=== PATIENT | female | born 1940 | race Caucasian/White ===

== ENCOUNTER 2019-12-02 17:47 | Inpatient (IN) ==
--- NOTE | 2019-12-02 23:52 | History & Physical Report ---
Date of Service December 02, 2019 Assessment & Plan (1) Facial swellinyo C female with HTN, HLP, Dementia presented initially to [facility] with complaint of left facial swelling. Imaging suggestive of extensive soft tissue edema, ?parotid involvement. Patient afebrile, HD stable, non-toxic in appearance. Labs from outside facility significant for leukocytosis and elevated lactate. CT read with no mention of abscess, drainable collection or involvement of deep spaces. -Admit to PCU -Load CT imaging from outside facility -Zosyn 3.375 gm IV q 8 -Follow cultures -Consider ENT consultation if needed Present on Admission?: Yes (2) Hypertension: Per review of records. BP is stable. Patient currently not on any medications. -Continue to monitor Present on Admission?: Yes (3) Hyperlipidemia: Chronic. -Patient had Crestor on medication list, does not appear to be taking it at the custodial -Confirm medications with sister in AM if able Present on Admission?: Yes (4) Dementia with behavioral disturbance: Chronic.. -Continue Seroquel -Holding Aricept for now as not on her medication list from her NH Present on Admission?: Yes (5) Thyroid mass of unclear etiology: Noted on imaging -Check TSH/T4 -US of thyroid prior to DC F/E/N - NSS, labs pending, regular diet as tolerated Ppx - low risk for DVT Code - Full per review of paperwork Dispo - Admit to PCU POC - Nu Zuniga . Left message Admission and Anticipated Discharge Date Admission Date: December 02, 2019 History of Present Illness Primary Care Provider: Austin Hay MD Patient unable to provide details of history or participate with physical exam due to underlying dementia. History obtained through chart review. Left message with patient's sister, Nu Zuniga [phone]. 79yo C female with history of dementia with behavioral disturbance, HTN, HLP. She presented to [facility] from her custodial today with complaint of left facial swelling. Workup at [facility] included a CT of the face which showede xtensive soft tissue swelling and subcutaneous stranding of left face and neck concerning for cellulitis and possibly inflammation of the left parotid and submandibular glands with no drainable collection or abscess. Also found to have bulky enlarged thyroid gland with heterogenous regions. Recommend followup with US. Additional studies at outside facility significant for Lactate=5.4, +UA, Cr=1.4, WBC=20.1 Patient with reported recent contact with a Covid-19 positive individual. Per report, Covid testing was sent at [facility], awaiting results. Allergies Allergy/AdvReac Type Severity Reaction Status Date / Time Unable to Assess Allergy Unverified 10/03/18 12:54 Home Medications Home Medications Medication Instructions Recorded Confirmed Type rosuvastatin 5 mg PO DAILY 05/31/18 05/31/18 History acetaminophen 325 mg tablet 650 mg PO Q4H PRN tab 10/03/18 10/03/18 History potassium chloride 20 mEq 20 meq PO DAILY PRN #30 tab 10/03/18 10/03/18 Rx tablet,extended release(part/cryst) quetiapine 25 mg tablet 25 mg PO BID #60 tab 11/02/18 Rx donepezil 10 mg tablet 10 mg PO DAILY #90 tab 12/14/18 Rx fentanyl 12/02/19 History ferrous sulfate 325 mg PO Q OTHER DAY 12/02/19 12/02/19 History magnesium hydroxide [Milk of 400 mg PO DAILY PRN 12/02/19 12/02/19 History Magnesia] polyethylene glycol 3350 [Miralax] 17 g PO DAILY PRN 12/02/19 12/02/19 History quetiapine [Seroquel] 50 mg PO DAILY 12/02/19 12/02/19 History quetiapine [Seroquel] 200 mg PO HS 12/02/19 12/02/19 History tramadol [Ultram] 50 mg PO Q8H PRN 12/02/19 12/02/19 History Past Med/Surg History Medical History (Updated 12/03/19 @ 00:30 by Daniela Priest DO) Colon wall thickening Dementia with behavioral disturbance Hyperlipidemia Hypertension Leg edema Low back pain 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) Sensorineural hearing loss (SNHL) of both ears Surgical History (Updated 10/03/18 @ 12:15 by Ginette Jay) History of eye surgery Family History (Updated 10/03/18 @ 12:17 by Ginette Jay) Unknown Alcohol abuse Anxiety Cancer Lung disease Cardiac disorder Breast cancer Ovarian cancer Myocardial infarction Other Family history non-contributory Social History Smoking Status: Unknown if ever smoked Communication Ability: Impaired Current Living Situation: Care Home Feels Safe at Home: Yes Review of Systems Review of Systems: Unobtainable due to cognitive status Physical Exam Physical Exam: General: patient frail, chronically ill in appearance, does not answer questions or follow commands Skin: warm, dry, intact HEENT: NC/AT, PERRL, EOMI, anicteric sclera, conjunctiva without injection, external ear normal to inspection and nontender, nares patent, dry mucus membranes, no oropharyngeal lesions, neck supple, trachea midline, no LAD, left face/parotid firm, tender, +anterior cervical LAD, +thyroid fullness, exam limited due to patient screaming Heart: +S1/S2, regular, no m/r/g Lungs: equal air entry bilaterally, no rales/rhonchi/wheezes Abd: +BS, soft, NT/ND, no masses/organomegaly/ascites Ext: warm, 2+ pulses in UE/LE bilaterally, no clubbing/cyanosis or edema Neuro: nonfocal, patient moving all extremities with equal strength, does not answer questions or follow commands Results & Data Results & Data ([facility]) Vital Signs (Past 12 Hours) Vital Signs Temp Pulse Resp BP Pulse Ox 12/02/19 23:33 36.9 C 70 16 129/74 97 Laboratory Results Pending Diagnostic Findings Pending ECG Additional Comments: Pending Code Status & VTE Plan Code Status Full PG Care Time/CCT Total # of Minutes Spent Total Time Spent with Patient: Total time spent is greater than 50% in coordination of care (as documented) at patient's floor/unit and/or counseling patient: Coding Level of Care Code 12252 Initial Inpt Care Lvl 3 Diagnoses Facial swelling R22.0 Hypertension I10 Hypertension type: essential hypertension Hyperlipidemia E78.5 Hyperlipidemia type: unspecified Dementia with behavioral disturbance F03.91 Dementia type: unspecified type Thyroid mass of unclear etiology E07.89 (1) Hypertension Hypertension type: essential hypertension Qualified Code(s): I10 - Essential (primary) hypertension (2) Hyperlipidemia Hyperlipidemia type: unspecified Qualified Code(s): E78.5 - Hyperlipidemia, unspecified (3) Dementia with behavioral disturbance Dementia type: unspecified type Qualified Code(s): F03.91 - Unspecified dementia with behavioral disturbance
[2019-12-02] MEDS ORDERED: ACETAMINOPHEN 325 MG TAB PO PRN (23:56)
[2019-12-02] MEDS ORDERED: ONDANSETRON INJ 2 MG/ML 2 ML VIAL IV PRN (23:56)
[2019-12-03] MEDS ORDERED: PIPERACILL/TAZOBAC CONSULT ACTIVE PRN (00:01)
[2019-12-03] MEDS ORDERED: traMADol HCL 50 MG TABLET PO PRN (00:02)
[2019-12-03] MEDS ORDERED: POLYETHYLENE (MIRALAX) 17 GM PACK PO PRN (00:02)
[2019-12-03] MEDS ORDERED: MAGNESIUM HYDROXIDE SUSP 30 ML UDC PO PRN (00:02)
[2019-12-03] MEDS ORDERED: SODIUM CHLORIDE 0.9% 1000ML 1,000 ML IV SCH (00:15)
[2019-12-03] MEDS ORDERED: PIPERACILLIN/TAZOBACTAM 3.375 GM in DEXTROSE 5% 100 ML IV ONE (00:30)
[2019-12-03 00:46] LABS: Basophils # (auto) 0.01 K/uL (0-0.2); Basophils % (auto) 0.1 %; Hematocrit (blood only) 32.8 % (37-47); Hemoglobin 10.5 g/dL (12.0-16.0); Immature Granulocytes # (auto) 0.06 K/uL (0.00-0.02); Immature Granulocytes % (auto) 0.3 %; Lymphocytes # (auto) 0.25 K/uL (1.2-3.4); Lymphocytes % (auto) 1.4 %; Mean Corpuscular Hemoglobin 27.3 pg (25-34); Mean Corpuscular Volume 85.2 fL (80-100); Monocytes # (auto) 0.24 K/uL (0.11-0.59); Monocytes % (auto) 1.3 %; Neutrophils # (auto) 17.52 K/uL (1.4-6.5); Neutrophils % (auto) 96.9 %; Platelet Count 189 K/uL (130-400); RDW Coefficient of Variation 14.7 % (11.5-14.5); RDW Standard Deviation 45.5 fL (36.4-46.3); Red Blood Count 3.85 M/uL (4.2-5.4); White Blood Count 18.08 K/uL (4.8-10.8)
[2019-12-03 01:03] LABS: Albumin Level 2.1 gm/dl (3.4-5.0); BUN Creatinine Ratio 25.5 (10-20); Bilirubin Direct 0.2 mg/dl (0-0.2); Calcium 7.9 mg/dl (8.5-10.1); Creatinine Clr Calc Pharmacy 38.5 ml/min; Est GFR (African American) 71.9; Est GFR (Non-African American) 62.1; Potassium 4.1 mmol/L (3.5-5.1)
[2019-12-03 01:14] LABS: Bilirubin,Total 0.4 mg/dl (0.2-1); Phosphorus 2.7 mg/dl (2.5-4.9); Thyroid Stimulating Hormone 0.179 uIu/ml (0.300-4.500)
[2019-12-03 01:27] LABS: T4 Free Thyroxine 1.16 ng/dl (0.8-1.6)
[2019-12-03 02:30] LABS: Appearance Urine Turbid (Clear); Bacteria Urine Automated 1+ (Negative); Bilirubin Urine Negative (Negative); Blood Urine 3+ (Negative); Color Urine Orange; Epithelial Cell Urine Auto 20-30 /lpf (0-5); Glucose Urine UA Negative (Negative); Ketones Urine Negative (Negative); Leukocyte Esterase Urine 2+ (Negative); Nitrite Urine Positive (Negative); Protein Urine 2+ (Negative); Specific Gravity Urine 1.026 (1.000-1.030); Urobilinogen Urine Negative (Negative); WBC Urine Automated >30 /hpf (0-5)
[2019-12-03 02:58] LABS: Cast Urine Automated 0 /lpf (0-5)
[2019-12-03] MEDS: PIPERACILLIN/TAZOBACTAM 3.375 GM in DEXTROSE 5% 100 ML IV SCH ×3 (06:30→21:20)
[2019-12-03] MEDS ORDERED: PNEUMOCOCCAL Polysaccharide Vaccine 25mcg/0.5mL vial/Syr IM ONE (08:00)
[2019-12-03] MEDS ORDERED: DONEPEZIL HCL 10 MG TAB PO SCH (09:00)
[2019-12-03] MEDS: QUEtiapine FUMARATE 25 MG TABLET PO SCH (09:45)
--- NOTE | 2019-12-03 15:01 | Hospitalist Progress Note ---
Date of Service December 03, 2019 Assessment & Plan (1) Facial swellinyo C female with HTN, HLP, Dementia presented initially to [place] [facility] with complaint of left facial swelling. Imaging suggestive of extensive soft tissue edema, ?parotid involvement. Patient afebrile, HD stable, non-toxic in appearance. Labs from outside facility significant for leukocytosis and elevated lactate. CT read with no mention of abscess, drainable collection or involvement of deep spaces. -Admit to PCU -Load CT imaging from outside facility -Zosyn 3.375 gm IV q 8 -Follow cultures -Consider ENT consultation if needed Improving based on prior notation Pt does not answer when asked if she feels better, but denies pain (2) Hypertension: Per review of records. BP is stable. Patient currently not on any medications. -Continue to monitor (3) Hyperlipidemia: Chronic. -Patient had Crestor on medication list, does not appear to be taking it at the long term -Confirm medications with sister in AM if able (4) Dementia with behavioral disturbance: Chronic.. -Continue Seroquel -Holding Aricept for now as not on her medication list from her NH Per nursing, facility informed nursing staff that pt uses ativan 0.5mg Q6hr PRN and tramadol HS PRN Fentanyl patch is long standing and for pain related to pelvic fx (5) Thyroid mass of unclear etiology: Noted on imaging -Check TSH/T4 -US of thyroid prior to DC Ppx - low risk for DVT Code - Full per review of paperwork Dispo - Admit to PCU POC - Nu Zuniga . Left message Per CM, pt will need PT/OT evals and insurance auth for d/c back to facility PT/OT not ordered yet as pt is unable to participate at present (6) UTI (urinary tract infection): UA noted Zosyn will cover Also with yeast in urine, will add fluconazole Urine cx pending Blood cx pending Admission and Anticipated Discharge Date Admission Date: December 02, 2019 Subjective Pt is mostly demented for nursing. They states she has tried to bite multiple people. She answers questions at times, other times not. No other concerns from nursing. Pt states "no" when asked if she has pain. Does not answer further questions. Review of Systems Review of Systems: Pertinent positives and negatives reviewed in HPI--all others negative Physical Exam Constitutional: WD/WN, vitals as above Eyes: normal visual trimble by confrontation and + anicteric sclerae Neck: normal visual inspection and trachea midline Respiratory: normal respiratory effort, lungs clear to auscultation Cardiovascular: Rate/Rhythm: regular rate and regular rhythm Gastrointestinal (Abdomen): Inspection/Auscultation: abdomen not distended Percussion/Palpation: abdomen soft; abdomen nontender Musculoskeletal: Head/Neck/Chest: normocephalic and head atraumatic negative for edema, peripheral pulses intact Skin: Pt with light pink discoloration on L, submandibular and moving into neck Neurologic: awake and + confused Psychiatric: Orientation: alert; + uncooperative Results & Data Results & Data ([facility]) Vital Signs (Past 12 Hours) Vital Signs Temp Pulse Resp BP Pulse Ox 12/03/19 07:34 36.4 C L 75 16 136/58 L 96 12/03/19 04:02 36.5 C 61 14 124/55 L 94 PG Care Time/CCT Total # of Minutes Spent Total Time Spent with Patient: Total time spent is greater than 50% in coordination of care (as documented) at patient's floor/unit and/or counseling patient: Coding Level of Care Code 69303 Subseq Hosp Care Lvl 3 Diagnoses Facial swelling R22.0 Hypertension I10 Hypertension type: essential hypertension Hyperlipidemia E78.5 Hyperlipidemia type: unspecified Dementia with behavioral disturbance F03.91 Dementia type: unspecified type Thyroid mass of unclear etiology E07.89 UTI (urinary tract infection) N39.0 (1) Hypertension Hypertension type: essential hypertension Qualified Code(s): I10 - Essential (primary) hypertension (2) Hyperlipidemia Hyperlipidemia type: unspecified Qualified Code(s): E78.5 - Hyperlipidemia, unspecified (3) Dementia with behavioral disturbance Dementia type: unspecified type Qualified Code(s): F03.91 - Unspecified dementia with behavioral disturbance
[2019-12-03] MEDS ORDERED: FLUCONAZOLE 200 MG/100 ML BAG IV ONE (15:15)
[2019-12-03] MEDS: CHECK fentaNYL PATCH PLACEMENT SCH ×2 (18:32→23:29)
[2019-12-03] MEDS: QUEtiapine FUMARATE 200 MG TAB PO SCH (21:22)
[2019-12-04] MEDS: LORazepam 0.5 MG TAB PO PRN ×2 (00:32→21:27)
[2019-12-04] MEDS: PIPERACILLIN/TAZOBACTAM 3.375 GM in DEXTROSE 5% 100 ML IV SCH ×3 (05:55→21:05)
[2019-12-04] MEDS: QUEtiapine FUMARATE 25 MG TABLET PO SCH (09:06)
[2019-12-04] MEDS: CHECK fentaNYL PATCH PLACEMENT SCH ×2 (09:59→15:51)
[2019-12-04] MEDS ORDERED: VANCOMYCIN CONSULT ACTIVE PRN (11:41)
--- NOTE | 2019-12-04 11:42 | Hospitalist Progress Note ---
Date of Service December 04, 2019 Assessment & Plan (1) Acute parotitis: CT face from [place] ER reviewed - no abscess seen; left parotid and left submandibular gland inflammation. ?cellulitis as well. On exam she appears to have left parotitis. Cont zosyn. add MRSA coverage with daptomycin. blood cultures from [place] are negative x 36 hours. 1/4 bottles from [facility] +for GPC clusters. I believe the 1 bottle at [facility] is likely contamination. (2) UTI (urinary tract infection): POA. urine cx from [place] + for gram negative taylor. will call tomorrow to get final report. cont zosyn for parotitis which will cover urine. no fungal growth on urine cx at [place] or [facility] - stop diflucan (3) Dementia with behavioral disturbance: uncertain baseline mental status. however, dementia likely advanced given the chronic seroquel usage. (4) Hyperlipidemia: hold statin while on daptomycin (5) Hypertension: controlled without meds (6) SDH (subdural hematoma): noted history of contributor to dementia? (7) Dehydration: start IV fluids repeat BMP in am (8) Underweight: BMI 17 per our records nearly 20kg of weight loss since 2019 likely due to advanced dementia cannot rule out other factors (9) Severe protein-calorie malnutrition: nearly 20 kg of weight loss in 1 year (10) Exposure to COVID-19 virus: while at [facility] patient shared a room with a patient that ultimately tested + for COVID-19 patient herself was tested at [facility] but it was several hours after the exposure without question her exposure would not lead to a positive test result that quickly thus, due to high risk of jean pierre the virus given advanced age, etc -- she is a PUI and remains in isolation watch for development of symptoms/signs of COVID-19 (11) Chronic kidney disease, stage 3a: baseline CrCl 30s/40s repeat BMP am (12) DVT prophylaxis: add heparin 5000 BID left message for Nu Welsh (sister) on voicemail tonight Admission and Anticipated Discharge Date Admission Date: December 02, 2019 Subjective tele stable overnight due to severe dementia no meaningful history or ROS could be obtained during the visit patient initially screaming upon my entrance to the room; did calm down during the exam, but then started screaming again I did not get a sense she was in any pain Review of Systems Review of Systems: Unobtainable due to cognitive status Physical Exam Constitutional: + thin, + altered mental status and + frail appearing; + not well developed, + not well nourished and no acute distress Eyes: no conjunctival abnormality and no scleral abnormality ENMT: Mouth: + dry oral mucous membranes left parotid gland enlarged, swollen, and mildly tender; no facial cellulitis on left Respiratory: normal respiratory effort, lungs clear to auscultation Auscultation: + diminished lung sounds (Bases) Cardiovascular: Rate/Rhythm: regular rate and regular rhythm Heart Sounds: normal S1 and normal S2 Vessels: posterior tibial pulses present and dorsalis pedis pulses present; no JVD Extremities: no edema Gastrointestinal (Abdomen): normal bowel sounds, soft, nontender, no hepatosplenomegaly Psychiatric: Orientation: + not alert and + not oriented x 3 Results & Data Results & Data ([facility]) Vital Signs (Past 12 Hours) Vital Signs Temp Pulse Pulse Pulse Resp BP Pulse Ox 12/04/19 08:40 36.7 C 64 17 131/73 100 12/04/19 03:56 36.2 C L 79 98/57 L 97 12/04/19 00:37 94 H 119/68 12/04/19 00:04 36.5 C 78 20 96/43 L 95 12/04/19 00:00 78 Laboratory Results Laboratory Results - last 24 hr 12/04/19 12:53 Creatinine 0.93 Est Cr Clr Drug Dosing 36.6 Est GFR ( Amer) 68.2 Est GFR (Non-Af Amer) 58.9 [facility] cultures -- blood cultures x 2 sets negative urine cx with GNR blood cultures [facility] -- 1 bottle out of 4 with GPC clusters PG Care Time/CCT Total # of Minutes Spent Total Time Spent with Patient: Total time spent is greater than 50% in coordination of care (as documented) at patient's floor/unit and/or counseling patient: Coding Level of Care Code 29093 Subseq Hosp Care Lvl 3 Diagnoses Acute parotitis K11.21 UTI (urinary tract infection) N39.0 Dementia with behavioral disturbance F03.91 Dementia type: unspecified type Hyperlipidemia E78.5 Hyperlipidemia type: unspecified Hypertension I10 Hypertension type: essential hypertension SDH (subdural hematoma) S06.5X9A Dehydration E86.0 Underweight R63.6 Severe protein-calorie malnutrition E43 Exposure to COVID-19 virus Z20.828 Chronic kidney disease, stage 3a N18.3 DVT prophylaxis Z29.9 (1) Dementia with behavioral disturbance Dementia type: unspecified type Qualified Code(s): F03.91 - Unspecified dementia with behavioral disturbance (2) Hyperlipidemia Hyperlipidemia type: unspecified Qualified Code(s): E78.5 - Hyperlipidemia, unspecified (3) Hypertension Hypertension type: essential hypertension Qualified Code(s): I10 - Essential (primary) hypertension
[2019-12-04] MEDS ORDERED: VANCOMYCIN HCL 1,000 MG in SODIUM CHLORIDE 0.9% 250 ML IV SCH (11:45)
[2019-12-04] MEDS ORDERED: VANCOMYCIN HCL 1,000 MG in SODIUM CHLORIDE 0.9% 250 ML IV STA (11:54)
--- NOTE | 2019-12-04 12:37 | XRay Report ---
XR chest 1V portable CLINICAL HISTORY: hypoxia COMPARISON STUDY: Chest radiograph May 31, 2018. FINDINGS: Moderate elevation of the left hemidiaphragm has increased since exam of May 31, 2018. No pneumothorax or pleural effusion is identified. No consolidation is noted. Mild left basilar opac ity favors atelectasis. There is no evidence for pulmonary edema. There is mild cardiomegaly. Degener ative changes of both shoulders, greater on the right, are incidentally noted. IMPRESSION: 1. Increase in moderate elevation of the left hemidiaphragm since chest radiograph January 28, 2019. 2. No acute cardiopulmonary findings identified. ACT 112: Negative or not required by law. Electronically signed by: Cecilio De Anda M.D. 12/04/2019 12:36 PM
[2019-12-04 13:34] LABS: Creatinine Clr Calc Pharmacy 36.6 ml/min; Est GFR (African American) 68.2; Est GFR (Non-African American) 58.9
[2019-12-04] MEDS: SODIUM CHLORIDE 0.9% 1000ML 1,000 ML IV SCH (14:45)
[2019-12-04] MEDS: DAPTOmycin 375 MG in SYRINGE 0 ML IV SCH (14:46)
[2019-12-04] MEDS ORDERED: FLUCONAZOLE 100 MG/50 ML BAG IV SCH (15:00)
[2019-12-04] MEDS ORDERED: DAPTOmycin 375 MG in SYRINGE 0 ML IV SCH (18:00)
[2019-12-04] MEDS: QUEtiapine FUMARATE 200 MG TAB PO SCH (21:27)
[2019-12-04] MEDS ORDERED: HALOPERIDOL LACTATE 5 MG/ML 1 ML VIAL IM STA (21:39)
[2019-12-04] MEDS ORDERED: HALOPERIDOL LACTATE 5 MG/ML 1 ML VIAL ONE (21:43)
[2019-12-04] MEDS ORDERED: MoRPHine SULFATE 2 MG/ML CARP IV STA (22:25)
[2019-12-05] MEDS: CHECK fentaNYL PATCH PLACEMENT SCH ×4 (00:41→23:16)
[2019-12-05] MEDS: SODIUM CHLORIDE 0.9% 1000ML 1,000 ML IV SCH (05:53)
[2019-12-05] MEDS: PIPERACILLIN/TAZOBACTAM 3.375 GM in DEXTROSE 5% 100 ML IV SCH ×3 (05:54→21:49)
[2019-12-05 08:44] LABS: Basophils # (auto) 0.01 K/uL (0-0.2); Basophils % (auto) 0.1 %; Eosinophils # (auto) 0.11 K/uL (0-0.5); Eosinophils % (auto) 1.2 %; Hematocrit (blood only) 26.8 % (37-47); Hemoglobin 8.5 g/dL (12.0-16.0); Immature Granulocytes # (auto) 0.02 K/uL (0.00-0.02); Immature Granulocytes % (auto) 0.2 %; Lymphocytes # (auto) 0.71 K/uL (1.2-3.4); Mean Corpuscular Hemoglobin 26.6 pg (25-34); Mean Corpuscular Hgb Conc 31.7 g/dL (32-36); Mean Corpuscular Volume 83.8 fL (80-100); Mean Platelet Volume 9.6 fL (7.4-10.4); Monocytes # (auto) 0.78 K/uL (0.11-0.59); Monocytes % (auto) 8.7 %; Neutrophils # (auto) 7.29 K/uL (1.4-6.5); Neutrophils % (auto) 81.8 %; Platelet Count 196 K/uL (130-400); RDW Coefficient of Variation 14.6 % (11.5-14.5); RDW Standard Deviation 45.6 fL (36.4-46.3); White Blood Count 8.92 K/uL (4.8-10.8)
[2019-12-05 09:02] LABS: BUN Creatinine Ratio 22.3 (10-20); Calcium 8.1 mg/dl (8.5-10.1); Creatinine Clr Calc Pharmacy 49.3 ml/min; Est GFR (African American) 96.6; Est GFR (Non-African American) 83.4; Potassium 3.7 mmol/L (3.5-5.1)
--- NOTE | 2019-12-05 09:05 | Communication Note ---
Date of Service: December 05, 2019 Blood cx's from [facility] NEGATIVE x 2 sets. Urine culture from 12/02/19 with: >100,000 CFU enterococcus faecalis -- pansensitive. >100,000 CFU pseudomonas aeruginosa -- sensitive to ceftaz, cefepime, gent, tobra, zosyn, meropenem; RESISTANT to quinolones. Artem Coronel MD
[2019-12-05] MEDS: HEPARIN SOD 5,000 UNIT/0.5 ML VIAL SQ SCH ×2 (10:06→21:49)
[2019-12-05] MEDS: QUEtiapine FUMARATE 25 MG TABLET PO SCH (10:07)
[2019-12-05] MEDS: fentaNYL 12 MCG/HR TDSY TD SCH (10:09)
[2019-12-05] MEDS: DAPTOmycin 375 MG in SYRINGE 0 ML IV SCH (14:10)
[2019-12-05] MEDS: LORazepam 0.5 MG TAB PO PRN (20:54)
--- NOTE | 2019-12-05 21:08 | Hospitalist Progress Note ---
Date of Service December 05, 2019 Assessment & Plan (1) Acute parotitis: CT face from [place] ER reviewed - no abscess seen; left parotid and left submandibular gland inflammation. ?cellulitis as well. left parotitis clinically on exam. IMPROVING - no fever, resolution of leukocytosis. Cont zosyn. Cont daptomycin. blood cultures from [place] are negative x 48 hours. 1/4 bottles from [facility] +for staph - likely contamination. (2) UTI (urinary tract infection): POA. 2nd to pseudomonas (resistant to quinolones) and enterococcus - sensitive to ampicillin. cont zosyn (will cover both pathogens). (3) Dementia with behavioral disturbance: uncertain baseline mental status. however, dementia likely advanced given the chronic seroquel usage, contractures on exam, primitive reflexes, etc (4) Hyperlipidemia: hold statin while on daptomycin (5) Hypertension: controlled without meds (6) SDH (subdural hematoma): noted history of contributor to dementia? (7) Dehydration: resolving s/p IV fluids BMP am (8) Underweight: BMI 17 per our records nearly 20kg of weight loss since 2019 likely due to advanced dementia cannot rule out other factors (9) Severe protein-calorie malnutrition: nearly 20 kg of weight loss in 1 year (10) Exposure to COVID-19 virus: while at [facility] patient shared a room with a patient that ultimately tested + for COVID-19 patient herself was tested at [facility] but it was several hours after the exposure without question her exposure would not lead to a positive test result that quickly thus, due to high risk of jean pierre the virus given advanced age, etc -- she is a PUI and remains in isolation watch for development of symptoms/signs of COVID-19 (11) Chronic kidney disease, stage 3a: baseline CrCl 30s/40s stable (12) DVT prophylaxis: heparin 5000 BID left message for Nu Welsh (sister) on voicemail 12/03 and 12/04 PT, OT Admission and Anticipated Discharge Date Admission Date: December 02, 2019 Subjective patient more comfortable today. not screaming like yesterday. unable to provide any meaningful history or ROS. staff report ongoing poor appetite. tele stable overnight. Review of Systems Review of Systems: Unobtainable due to cognitive status Physical Exam Constitutional: + thin, + altered mental status and + frail appearing; + not w ell developed, + not well nourished and no acute distress ENMT: Mouth: oral mucous membranes not dry left face - left parotid gland swelling; about 2.5cm in vertical height, and about 2cm in width; mildly tender to palpation; minimal/scant overlying erythema. shotty lymphadenopathy left cervical region. Respiratory: normal respiratory effort, lungs clear to auscultation Auscultation: + diminished lung sounds (Bases) Cardiovascular: Rate/Rhythm: regular rate and regular rhythm Heart Sounds: normal S1 and normal S2 Vessels: posterior tibial pulses present and dorsalis pedis pulses present; no JVD Extremities: no edema Gastrointestinal (Abdomen): normal bowel sounds, soft, nontender, no hepatosplenomegaly Psychiatric: Orientation: + not alert and + not oriented x 3 Results & Data Results & Data ([facility]) Vital Signs (Past 12 Hours) Vital Signs Temp Pulse Pulse Resp BP BP Pulse Ox 12/05/19 19:37 36.5 C 85 17 142/81 H 100 12/05/19 16:48 36.7 C 88 17 149/97 H 95 12/05/19 11:12 36.9 C 86 22 115/87 98 Laboratory Results Laboratory Results - last 24 hr 12/05/19 12/05/19 08:08 08:08 WBC 8.92 RBC 3.20 L Hgb 8.5 L Hct 26.8 L MCV 83.8 MCH 26.6 MCHC 31.7 L RDW Std Deviation 45.6 RDW Coeff of Wilmer 14.6 H Plt Count 196 MPV 9.6 Immature Gran % (Auto) 0.2 Neut % (Auto) 81.8 Lymph % (Auto) 8.0 [place]orne % (Auto) 8.7 Eos % (Auto) 1.2 Baso % (Auto) 0.1 Neut # (Auto) 7.29 H Lymph # (Auto) 0.71 L [place] # (Auto) 0.78 H Eos # (Auto) 0.11 Baso # (Auto) 0.01 Immature Gran # (Auto) 0.02 Sodium 142 Potassium 3.7 Chloride 112 H Carbon Dioxide 24 Anion Gap 6.0 BUN 15 Creatinine 0.69 Est Cr Clr Drug Dosing 49.3 Est GFR ( Amer) 96.6 Est GFR (Non-Af Amer) 83.4 BUN/Creatinine Ratio 22.3 H Glucose 81 Calcium 8.1 L blood cx's x 2 sets -- [facility] (12/02) -- negative. urine cx -- 12/02 - pseudomonas, enterococcus (see communication note). PG Care Time/CCT Total # of Minutes Spent Total Time Spent with Patient: Total time spent is greater than 50% in coordination of care (as documented) at patient's floor/unit and/or counseling patient: Coding Level of Care Code 58196 Subseq Hosp Care Lvl 2 Diagnoses Acute parotitis K11.21 UTI (urinary tract infection) N39.0 Dementia with behavioral disturbance F03.91 Dementia type: unspecified type Hyperlipidemia E78.5 Hyperlipidemia type: unspecified Hypertension I10 Hypertension type: essential hypertension SDH (subdural hematoma) S06.5X9A Dehydration E86.0 Underweight R63.6 Severe protein-calorie malnutrition E43 Exposure to COVID-19 virus Z20.828 Chronic kidney disease, stage 3a N18.3 DVT prophylaxis Z29.9 (1) Dementia with behavioral disturbance Dementia type: unspecified type Qualified Code(s): F03.91 - Unspecified dementia with behavioral disturbance (2) Hyperlipidemia Hyperlipidemia type: unspecified Qualified Code(s): E78.5 - Hyperlipidemia, unspecified (3) Hypertension Hypertension type: essential hypertension Qualified Code(s): I10 - Essential (primary) hypertension
[2019-12-05] MEDS: QUEtiapine FUMARATE 200 MG TAB PO SCH (21:49)
[2019-12-06] MEDS: PIPERACILLIN/TAZOBACTAM 3.375 GM in DEXTROSE 5% 100 ML IV SCH ×3 (06:42→22:11)
[2019-12-06 07:47] LABS: Hematocrit (blood only) 28.4 % (37-47); Mean Corpuscular Hemoglobin 26.8 pg (25-34); Mean Corpuscular Hgb Conc 31.7 g/dL (32-36); Mean Corpuscular Volume 84.5 fL (80-100); Mean Platelet Volume 9.1 fL (7.4-10.4); Platelet Count 224 K/uL (130-400); RDW Coefficient of Variation 14.8 % (11.5-14.5); RDW Standard Deviation 45.9 fL (36.4-46.3); Red Blood Count 3.36 M/uL (4.2-5.4); White Blood Count 6.56 K/uL (4.8-10.8)
[2019-12-06 09:04] LABS: Calcium 8.1 mg/dl (8.5-10.1); Creatinine Clr Calc Pharmacy 52.9 ml/min; Est GFR (African American) 97.6; Est GFR (Non-African American) 84.2; Potassium 3.5 mmol/L (3.5-5.1)
[2019-12-06] MEDS: CHECK fentaNYL PATCH PLACEMENT SCH ×3 (09:18→23:45)
[2019-12-06] MEDS: QUEtiapine FUMARATE 25 MG TABLET PO SCH (09:19)
[2019-12-06] MEDS: HEPARIN SOD 5,000 UNIT/0.5 ML VIAL SQ SCH ×2 (09:20→21:06)
[2019-12-06] MEDS ORDERED: bisacodyL 10 MG SUPP PR STA (10:21)
[2019-12-06] MEDS ORDERED: SOD PHOSPHATE/SOD BIPHOSPHATE ENEMA 132 ML BTL PR PRN (10:21)
--- NOTE | 2019-12-06 10:21 | Hospitalist Progress Note ---
Date of Service December 06, 2019 Assessment & Plan (1) Positive blood culture: 1/8 bottles + for MRSA. 4 of the bottles were drawn at [facility] ER and are fully negative. Typically 1 bottle out of 8 would be considered contamination. However, the pathogen is MRSA. I would be hard pressed to ignore MRSA in the blood. Thus, will plan on 14-day course of daptomycin (or vanco) for such. Check echo to ensure clean valves/no SBE. (2) Acute parotitis: CT face from [place] ER reviewed - no abscess seen; left parotid and left submandibular gland inflammation. ?cellulitis as well. left parotitis clinically on exam. Continues to improve. Cont zosyn. Cont daptomycin. (3) UTI (urinary tract infection): POA. 2nd to pseudomonas (resistant to quinolones) and enterococcus - sensitive to ampicillin. cont zosyn (will cover both pathogens). daptomycin is to cover left parotid gland and the MRSA in blood. (4) Dementia with behavioral disturbance: uncertain baseline mental status. however, dementia likely advanced given the chronic seroquel usage, contractures on exam, primitive reflexes, etc (5) Hyperlipidemia: hold statin while on daptomycin (6) Hypertension: controlled without meds (7) SDH (subdural hematoma): noted history of (8) Dehydration: resolved however, I am concerned her nutrition and oral intake continue to be poor will need to watch for need for ongoing IV fluids (9) Underweight: BMI 17 per our records nearly 20kg of weight loss since 2019 likely due to advanced dementia cannot rule out other factors (10) Severe protein-calorie malnutrition: nearly 20 kg of weight loss in 1 year (11) Exposure to COVID-19 virus: while at [facility] patient shared a room with a patient that ultimately tested + for COVID-19 patient herself was tested at [facility] but it was several hours after the exposure without question her exposure would not lead to a positive test result that quickly the test at [facility] was negative thus, due to high risk of jean pierre the virus given advanced age, etc -- she is a PUI and remains in isolation watch for development of symptoms/signs of COVID-19 will retest her today (12) Chronic kidney disease, stage 3a: baseline CrCl 30s/40s stable BMP am (13) Abnormal leg finding: LLE is much larger than RLE. Check doppler of LLE, r/o DVT. She is on heparin SC for DVT proph at present. (14) DVT prophylaxis: heparin 5000 BID left message for Nu Welsh (sister) on voicemail 12/03 and 12/04 PT, OT Admission and Anticipated Discharge Date Admission Date: December 02, 2019 Subjective patient very calm during visit today. no screaming to suggest discomfort or pain. looks at me but doesn't verbalize / speak. unable to elicit any history/ROS due to advanced dementia. Review of Systems Review of Systems: Unobtainable due to mental health condition and Unobtainable due to cognitive status Physical Exam Constitutional: + thin, + altered mental status and + frail appearing; + not well developed, + not well nourished and no acute distress Eyes: no conjunctival abnormality and no scleral abnormality ENMT: Mouth: + dry oral mucous membranes left parotid gland -- less swelling, size has decreased, nontender to palpation; overlying erythema resolved; shotty lymphadenopathy left neck Respiratory: normal respiratory effort, lungs clear to auscultation Auscultation: + diminished lung sounds (Bases) Cardiovascular: Rate/Rhythm: regular rate and regular rhythm Heart Sounds: normal S1 and normal S2 Vessels: posterior tibial pulses present and dorsalis pedis pulses present; no JVD Extremities: no edema Gastrointestinal (Abdomen): normal bowel sounds, soft, nontender, no hepatosplenomegaly Musculoskeletal: left leg is much larger than right leg - new Neurologic: contractures of arms Psychiatric: Orientation: + not alert and + not oriented x 3 Results & Data Results & Data ([facility]) Vital Signs (Past 12 Hours) Vital Signs Temp Pulse Resp BP BP Pulse Ox 12/06/19 07:58 36.8 C 82 18 151/67 H 96 12/06/19 02:55 36.6 C 95 H 20 133/85 91 12/05/19 23:07 36.8 C 121 H 20 155/65 H 93 Laboratory Results Laboratory Results - last 24 hr 12/06/19 12/06/19 12/06/19 07:21 07:21 07:22 WBC 6.56 RBC 3.36 L Hgb 9.0 L Hct 28.4 L MCV 84.5 MCH 26.8 MCHC 31.7 L RDW Std Deviation 45.9 RDW Coeff of Wilmer 14.8 H Plt Count 224 MPV 9.1 Sodium 141 Potassium 3.5 Chloride 110 H Carbon Dioxide 24 Anion Gap 7.0 BUN 10 D Creatinine 0.67 Est Cr Clr Drug Dosing 52.9 Est GFR ( Amer) 97.6 Est GFR (Non-Af Amer) 84.2 BUN/Creatinine Ratio 15.0 Glucose 75 Calcium 8.1 L Vitamin B12 Pending Folate Pending PG Care Time/CCT Total # of Minutes Spent Total Time Spent with Patient: Total time spent is greater than 50% in coordination of care (as documented) at patient's floor/unit and/or counseling patient: Coding Level of Care Code 39164 Subseq Hosp Care Lvl 3 Diagnoses Positive blood culture R78.81 Acute parotitis K11.21 UTI (urinary tract infection) N39.0 Dementia with behavioral disturbance F03.91 Dementia type: unspecified type Hyperlipidemia E78.5 Hyperlipidemia type: unspecified Hypertension I10 Hypertension type: essential hypertension SDH (subdural hematoma) S06.5X9A Dehydration E86.0 Underweight R63.6 Severe protein-calorie malnutrition E43 Exposure to COVID-19 virus Z20.828 Chronic kidney disease, stage 3a N18.3 Abnormal leg finding R29.91 DVT prophylaxis Z29.9 (1) Dementia with behavioral disturbance Dementia type: unspecified type Qualified Code(s): F03.91 - Unspecified dementia with behavioral disturbance (2) Hyperlipidemia Hyperlipidemia type: unspecified Qualified Code(s): E78.5 - Hyperlipidemia, unspecified (3) Hypertension Hypertension type: essential hypertension Qualified Code(s): I10 - Essential (primary) hypertension
[2019-12-06 11:51] LABS: Folate (Folic Acid) 10.42 ng/ml (>5.38)
--- NOTE | 2019-12-06 12:29 | XCELERA ---
[id number]
[2019-12-06] MEDS: DAPTOmycin 375 MG in SYRINGE 0 ML IV SCH (14:30)
[2019-12-06] MEDS: QUEtiapine FUMARATE 200 MG TAB PO SCH (20:01)
[2019-12-07] MEDS ORDERED: Heparin IV Standard *NO* Bolus IV ONE (00:03)
[2019-12-07 01:26] LABS: Partial Thromboplastin Ratio 1.1; Partial Thromboplastin Time 29.6 Seconds (21.0-31.0)
[2019-12-07] MEDS: HEPARIN SODIUM/DEXTROSE 25,000 UNITS/500 ML BAG IV SCH ×2 (02:31→23:42)
[2019-12-07] MEDS: PIPERACILLIN/TAZOBACTAM 3.375 GM in DEXTROSE 5% 100 ML IV SCH ×3 (05:37→22:10)
--- NOTE | 2019-12-07 06:57 | Ultrasound Report ---
ULTRASOUND LEFT LOWER EXTREMITY VENOUS CLINICAL HISTORY: Left lower extremity edema. COMPARISON STUDY: Left lower extremity venous ultrasound dated 09/19/2018. TECHNIQUE: Real-time, grayscale, and color Doppler sonography of the deep veins of the left lower ext remity was performed from the inguinal crease to the calf. Compression and augmentation were utilized . Examination is degraded by lack of patient cooperation. FINDINGS: There is nearly occlusive and acute appearing deep venous thrombosis identified in the left common femoral vein. The left superficial femoral vein is patent and normally compressible. The popl iteal vein and calf vessels were not visualized. The greater saphenous vein and the profunda femoris vein at the junction with the common femoral vein are clear. IMPRESSION: There is acute appearing and nearly occlusive deep venous thrombosis identified in the le ft common femoral vein. ACT 112: Negative or not required by law. Electronically signed by: Sigifredo Stewart M.D. 12/07/2019 6:56 AM
[2019-12-07 08:28] LABS: Partial Thromboplastin Ratio 1.3; Partial Thromboplastin Time 35.8 Seconds (21.0-31.0)
[2019-12-07 08:41] LABS: BUN Creatinine Ratio 12.9 (10-20); Calcium 8.3 mg/dl (8.5-10.1); Creatinine Clr Calc Pharmacy 55.6 ml/min; Est GFR (African American) 99.1; Est GFR (Non-African American) 85.5; Potassium 3.3 mmol/L (3.5-5.1)
[2019-12-07] MEDS: CHECK fentaNYL PATCH PLACEMENT SCH ×3 (08:43→23:41)
[2019-12-07] MEDS: QUEtiapine FUMARATE 25 MG TABLET PO SCH (08:43)
[2019-12-07] MEDS ORDERED: HEPARIN IV BOLUS 4,000 UNITS in SYRINGE 0 ML IV ONE (09:00)
[2019-12-07] MEDS ORDERED: POTASSIUM CHLORIDE / WTR 10 MEQ/100 ML PLCT IV STA (10:41)
--- NOTE | 2019-12-07 11:47 | Hospitalist Progress Note ---
Date of Service December 07, 2019 Assessment & Plan (1) DVT (deep venous thrombosis): heparin infusion instituted. she developed the DVT despite appropriate DVT proph with heparin SC. will d/w pharmacy which oral agent to use at discharge. (2) Positive blood culture: 1/8 bottles + for MRSA. 4 of the bottles were drawn at [facility] ER and are fully negative. Typically 1 bottle out of 8 would be considered contamination. However, the pathogen is MRSA. I would be hard pressed to ignore MRSA in the blood. Thus, will plan on 14-day course of daptomycin (or vanco) for such. Today is day #4 of daptomycin. When she returns to SNF will need to use vanco IV. Echo w/o endocarditis. (3) Acute parotitis: LEFT. Continues to improve. Cont zosyn. Cont daptomycin. (4) UTI (urinary tract infection): POA. 2nd to pseudomonas (resistant to quinolones) and enterococcus - sensitive to ampicillin. cont zosyn (will cover both pathogens). daptomycin is to cover left parotid gland and the MRSA in blood. today is day #5 of 7 of Rx for both pathogens d/c [facility] soon (5) Dementia with behavioral disturbance: uncertain baseline mental status. however, dementia likely advanced given the chronic seroquel usage, contractures on exam, primitive reflexes, etc (6) Hyperlipidemia: hold statin while on daptomycin (7) Hypertension: controlled without meds (8) SDH (subdural hematoma): noted history of (9) Dehydration: resolved however, nutrition continues to be poor suspect this is chronic issue due to advanced dementia consider appetite stimulant (10) Underweight: BMI 17 per our records nearly 20kg of weight loss since 2019 likely due to advanced dementia cannot rule out other factors (11) Severe protein-calorie malnutrition: nearly 20 kg of weight loss in 1 year (12) Exposure to COVID-19 virus: while at [facility] patient shared a room with a patient that ultimately tested + for COVID-19 patient herself was tested at [facility] but it was several hours after the exposure without question her exposure would not lead to a positive test result that quickly the test at [place] was negative the exposure occurred 12/02/2019 thus, due to high risk of jean pierre the virus given advanced age, etc -- she is a PUI and remains in isolation watch for development of symptoms/signs of COVID-19 she needs 14 days of quarantine (even despite neg COVID test yesterday -- she could develop symptoms anytime in the next 9 days) (13) Chronic kidney disease, stage 3a: baseline CrCl 30s/40s stable BMP am (14) DVT prophylaxis: heparin 5000 BID left message for Nu Welsh (sister) on voicemail 12/03 and 12/04 and 12/06 PT, OT can d/c tele; move to med/surg Admission and Anticipated Discharge Date Admission Date: December 02, 2019 Subjective patient lying comfortably in bed during my visit no screaming/yelling or signs of pain/discomfort during the visit tele stable overnight staff report "large" bowel movement last night poor appetite unable to provide any meaningful history or ROS Review of Systems Review of Systems: Unobtainable due to mental health condition and Unobtainable due to cognitive status Physical Exam Constitutional: + thin, + altered mental status and + frail appearing; + not well developed, + not well nourished and no acute distress ENMT: Mouth: + dry oral mucous membranes left parotid gland continues to improve; nontender; no erythema, warmth, or tenderness. size is <2cm x 1cm Respiratory: normal respiratory effort, lungs clear to auscultation Auscultation: + diminished lung sounds (Bases) Cardiovascular: Rate/Rhythm: regular rate and regular rhythm Heart Sounds: normal S1 and normal S2 Vessels: posterior tibial pulses present and dorsalis pedis pulses present; no JVD Extremities: no edema Gastrointestinal (Abdomen): normal bowel sounds, soft, nontender, no hepatosplenomegaly Musculoskeletal: left leg is larger than right leg Neurologic: contractures of arms Psychiatric: Orientation: + not alert and + not oriented x 3 Results & Data Results & Data ([facility]) Vital Signs (Past 12 Hours) Vital Signs Temp Pulse Pulse Resp BP BP Pulse Ox 12/07/19 09:14 36.7 C 96 H 17 120/63 93 12/07/19 00:18 37.0 C 103 H 22 170/72 H 97 Laboratory Results Laboratory Results - last 24 hr 12/06/19 12/06/19 12/06/19 07:22 17:05 17:05 APTT PTT Ratio Sodium Potassium Chloride Carbon Dioxide Anion Gap BUN Creatinine Est Cr Clr Drug Dosing Est GFR ( Amer) Est GFR (Non-Af Amer) BUN/Creatinine Ratio Glucose Calcium Vitamin B12 423 Folate 10.42 COVID-19 Eval Order Covid19 [facility] SARS-CoV-2, RNA, NAAT NEGATIVE 12/07/19 12/07/19 12/07/19 00:51 07:39 07:39 APTT 29.6 35.8 H PTT Ratio 1.1 1.3 Sodium 140 Potassium 3.3 L Chloride 106 Carbon Dioxide 24 Anion Gap 9.0 BUN 8 Creatinine 0.64 Est Cr Clr Drug Dosing 55.6 Est GFR ( Amer) 99.1 Est GFR (Non-Af Amer) 85.5 BUN/Creatinine Ratio 12.9 Glucose 88 Calcium 8.3 L Vitamin B12 Folate COVID-19 Eval Order SARS-CoV-2, RNA, NAAT PG Care Time/CCT Total # of Minutes Spent Total Time Spent with Patient: Total time spent is greater than 50% in coordination of care (as documented) at patient's floor/unit and/or counseling patient: Coding Level of Care Code 92813 Subseq Hosp Care Lvl 2 Diagnoses DVT (deep venous thrombosis) I82.412 DVT location: lower extremity Affected thrombotic vein of extremity: femoral Chronicity: acute Laterality: left Positive blood culture R78.81 Acute parotitis K11.21 UTI (urinary tract infection) N39.0 Dementia with behavioral disturbance F03.91 Dementia type: unspecified type Hyperlipidemia E78.5 Hyperlipidemia type: unspecified Hypertension I10 Hypertension type: essential hypertension SDH (subdural hematoma) S06.5X9A Dehydration E86.0 Underweight R63.6 Severe protein-calorie malnutrition E43 Exposure to COVID-19 virus Z20.828 Chronic kidney disease, stage 3a N18.3 DVT prophylaxis Z29.9 (1) Dementia with behavioral disturbance Dementia type: unspecified type Qualified Code(s): F03.91 - Unspecified dementia with behavioral disturbance (2) Hyperlipidemia Hyperlipidemia type: unspecified Qualified Code(s): E78.5 - Hyperlipidemia, unspecified (3) Hypertension Hypertension type: essential hypertension Qualified Code(s): I10 - Essential (primary) hypertension (4) DVT (deep venous thrombosis) DVT location: lower extremity Affected thrombotic vein of extremity: femoral Chronicity: acute Laterality: left Qualified Code(s): I82.412 - Acute embolism and thrombosis of left femoral vein
[2019-12-07] MEDS: POTASSIUM CHLORIDE / WTR 10 MEQ/100 ML PLCT IV SCH ×2 (11:49→13:57)
[2019-12-07] MEDS: DAPTOmycin 375 MG in SYRINGE 0 ML IV SCH (13:57)
[2019-12-07 16:06] LABS: Partial Thromboplastin Ratio > 5.0
[2019-12-07 16:21] LABS: Partial Thromboplastin Time > 139.0 Seconds (21.0-31.0)
[2019-12-07] MEDS: CEROVITE ADV FORMULA TAB PO SCH (17:27)
[2019-12-07] MEDS: THIAMINE HCL 100 MG TAB PO SCH ×2 (17:27→22:11)
[2019-12-07] MEDS: SENNA 8.6 MG TAB PO SCH (17:28)
[2019-12-07 19:44] LABS: Partial Thromboplastin Ratio 1.7
[2019-12-07 19:55] LABS: Partial Thromboplastin Time 48.1 Seconds (21.0-31.0)
[2019-12-07] MEDS: QUEtiapine FUMARATE 200 MG TAB PO SCH (22:11)
[2019-12-08 03:27] LABS: Partial Thromboplastin Ratio > 5.0
[2019-12-08 03:38] LABS: Partial Thromboplastin Time > 139.0 Seconds (21.0-31.0)
[2019-12-08 04:59] LABS: Hematocrit (blood only) 24.7 % (37-47); Mean Corpuscular Hemoglobin 27.1 pg (25-34); Mean Corpuscular Hgb Conc 32.4 g/dL (32-36); Mean Corpuscular Volume 83.7 fL (80-100); Platelet Count 244 K/uL (130-400); RDW Coefficient of Variation 14.8 % (11.5-14.5); RDW Standard Deviation 45.2 fL (36.4-46.3); Red Blood Count 2.95 M/uL (4.2-5.4); White Blood Count 5.28 K/uL (4.8-10.8)
[2019-12-08 05:35] LABS: BUN Creatinine Ratio 10.9 (10-20); Calcium 8.2 mg/dl (8.5-10.1); Creatinine Clr Calc Pharmacy 55.6 ml/min; Est GFR (African American) 99.1; Est GFR (Non-African American) 85.5; Potassium 2.7 mmol/L (3.5-5.1)
[2019-12-08] MEDS: PIPERACILLIN/TAZOBACTAM 3.375 GM in DEXTROSE 5% 100 ML IV SCH ×2 (05:46→13:56)
[2019-12-08 07:20] LABS: Partial Thromboplastin Ratio 1.1; Partial Thromboplastin Time 30.6 Seconds (21.0-31.0)
[2019-12-08] MEDS: POTASSIUM CHLORIDE / WTR 10 MEQ/100 ML PLCT IV SCH ×3 (08:42→10:53)
[2019-12-08] MEDS: CHECK fentaNYL PATCH PLACEMENT SCH ×3 (09:36→23:32)
[2019-12-08] MEDS: fentaNYL 12 MCG/HR TDSY TD SCH (09:36)
[2019-12-08] MEDS: SENNA 8.6 MG TAB PO SCH (09:36)
[2019-12-08] MEDS: POTASSIUM CHLORIDE 10 MEQ TABCR PO SCH ×2 (09:40→22:02)
[2019-12-08] MEDS: QUEtiapine FUMARATE 25 MG TABLET PO SCH (09:41)
[2019-12-08] MEDS: THIAMINE HCL 100 MG TAB PO SCH ×3 (09:43→22:02)
[2019-12-08] MEDS: CEROVITE ADV FORMULA TAB PO SCH ×2 (09:44→09:56)
[2019-12-08] MEDS: DAPTOmycin 375 MG in SYRINGE 0 ML IV SCH (13:56)
[2019-12-08] MEDS: ENOXAPARIN 80 MG/0.8 ML SYR SQ SCH (16:31)
--- NOTE | 2019-12-08 17:43 | Hospitalist Progress Note ---
Date of Service December 08, 2019 Assessment & Plan (1) DVT (deep venous thrombosis): LLE she developed the DVT despite appropriate DVT proph with heparin SC. will stop heparin drip today transition to lovenox 1.5mg/kg/day (70mg) daily and treat for 6 months poor candidate for coumadin due to inconsistent eating and low body weight poor candidate for novel agent as well lovenox will provide most consistent anticoagulation (2) Positive blood culture: 1/8 bottles + for MRSA. 4 of the bottles were drawn at [facility] ER and are fully negative. Typically 1 bottle out of 8 would be considered contamination. However, the pathogen is MRSA. I would be hard pressed to ignore MRSA in the blood. Thus, will plan on 14-day course of daptomycin (or vanco) for such. Today is day #5 of daptomycin. When she returns to SNF will need to use vanco IV in franc[place] of dapto. Echo w/o endocarditis. (3) Acute parotitis: LEFT. Continues to improve. today is day 7 of zosyn; stop such, transition to oral augmentin x 3 more days. cont daptomycin which will provide MRSA coverage. (4) UTI (urinary tract infection): POA. 2nd to pseudomonas (resistant to quinolones) and enterococcus - sensitive to ampicillin. cont zosyn (will cover both pathogens). daptomycin is to cover left parotid gland and the MRSA in blood. today is day #6-7 of 7 of Rx for both pathogens stop zosyn today. (5) Dementia with behavioral disturbance: dementia advanced given the chronic seroquel usage, contractures on exam, primitive reflexes, etc (6) Hyperlipidemia: hold statin while on daptomycin (7) Hypertension: controlled without meds (8) SDH (subdural hematoma): noted history of (9) Dehydration: resolved however, nutrition continues to be poor suspect this is chronic issue due to advanced dementia (10) Underweight: BMI 17 per our records nearly 20kg of weight loss since 2019 likely due to advanced dementia cannot rule out other factors (11) Severe protein-calorie malnutrition: nearly 20 kg of weight loss in 1 year (12) Exposure to COVID-19 virus: while at [facility] patient shared a room with a patient that ultimately tested + for COVID-19 patient herself was tested at [facility] but it was several hours after the exposure without question her exposure would not lead to a positive test result that quickly the test at [place] was negative the exposure occurred 12/02/2019 thus, due to high risk of jean pierre the virus given advanced age, etc -- she is a PUI and remains in isolation watch for development of symptoms/signs of COVID she needs 14 days of quarantine (even despite neg COVID test 2 days ago- she could develop symptoms anytime in the next 8 days) (13) Chronic kidney disease, stage 3a: baseline CrCl 30s/40s stable BMP am (14) DVT prophylaxis: lovenox as above left message for Nu Welsh (sister) on voicemail 12/03 and 12/04 and 12/06 finally spoke with Nu today along with her questions answered Nu's , Harjinder, holds healthcare POA they told me they didn't have the power to change her code status I explained to them they were mistaken Harjinder read me the document he has which authorizes him to make medical decisions on her behalf I asked them to discuss her code status together and let me know what they want to do phone call was 20+ minutes in duration cont PT, OT d/c to SNF next 1-2 days Admission and Anticipated Discharge Date Admission Date: December 02, 2019 Subjective per staff pt continues to have very poor oral intake I spoke with Nu Johnman, pt's twin sister, and she confirmed that her sister has lost copious weight in the last year at the SNF and has been eating poorly for some time staff report no acute issues Review of Systems Review of Systems: Unobtainable due to cognitive status Physical Exam Constitutional: + thin, + altered mental status and + frail appearing; + not well developed, + not well nourished and no acute distress Eyes: no conjunctival abnormality and no scleral abnormality ENMT: Mouth: + dry oral mucous membranes left parotid gland continues to decrease in size no tenderness no erythema minimal swelling today Respiratory: normal respiratory effort, lungs clear to auscultation Auscultation: + diminished lung sounds (Bases) Cardiovascular: Rate/Rhythm: regular rate and regular rhythm Heart Sounds: normal S1 and normal S2 Vessels: posterior tibial pulses present and dorsalis pedis pulses present; no JVD Extremities: no edema Gastrointestinal (Abdomen): normal bowel sounds, soft, nontender, no hepatosplenomegaly Psychiatric: Orientation: + not alert and + not oriented x 3 Results & Data Results & Data ([facility]) Vital Signs (Past 12 Hours) Vital Signs Temp Pulse Resp BP Pulse Ox 12/08/19 07:39 36.6 C 93 H 20 121/63 99 Laboratory Results Laboratory Results - last 24 hr 12/07/19 12/08/19 12/08/19 19:17 02:57 04:52 WBC RBC Hgb Hct MCV MCH MCHC RDW Std Deviation RDW Coeff of Wilmer Plt Count MPV APTT 48.1 H* > 139.0 H* PTT Ratio 1.7 > 5.0 Sodium 142 Potassium 2.7 L D Chloride 109 H Carbon Dioxide 25 Anion Gap 8.0 BUN 7 Creatinine 0.64 Est Cr Clr Drug Dosing 55.6 Est GFR ( Amer) 99.1 Est GFR (Non-Af Amer) 85.5 BUN/Creatinine Ratio 10.9 Glucose 92 Calcium 8.2 L Magnesium 2.0 12/08/19 12/08/19 12/08/19 04:52 04:52 06:49 WBC 5.28 RBC 2.95 L Hgb 8.0 L Hct 24.7 L MCV 83.7 MCH 27.1 MCHC 32.4 RDW Std Deviation 45.2 RDW Coeff of Wilmer 14.8 H Plt Count 244 MPV 9.0 APTT 111.0 H* 30.6 PTT Ratio 4.0 1.1 Sodium Potassium Chloride Carbon Dioxide Anion Gap BUN Creatinine Est Cr Clr Drug Dosing Est GFR ( Amer) Est GFR (Non-Af Amer) BUN/Creatinine Ratio Glucose Calcium Magnesium PG Care Time/CCT Total # of Minutes Spent Total Time Spent with Patient: Total time spent is greater than 50% in coordination of care (as documented) at patient's floor/unit and/or counseling patient: Coding Level of Care Code 96586 Subseq Hosp Care Lvl 3 Diagnoses DVT (deep venous thrombosis) I82.412 Affected thrombotic vein of extremity: femoral Chronicity: acute DVT location: lower extremity Laterality: left Positive blood culture R78.81 Acute parotitis K11.21 UTI (urinary tract infection) N39.0 Dementia with behavioral disturbance F03.91 Dementia type: unspecified type Hyperlipidemia E78.5 Hyperlipidemia type: unspecified Hypertension I10 Hypertension type: essential hypertension SDH (subdural hematoma) S06.5X9A Dehydration E86.0 Underweight R63.6 Severe protein-calorie malnutrition E43 Exposure to COVID-19 virus Z20.828 Chronic kidney disease, stage 3a N18.3 DVT prophylaxis Z29.9 (1) Dementia with behavioral disturbance Dementia type: unspecified type Qualified Code(s): F03.91 - Unspecified dementia with behavioral disturbance (2) DVT (deep venous thrombosis) Affected thrombotic vein of extremity: femoral Chronicity: acute DVT location: lower extremity Laterality: left Qualified Code(s): I82.412 - Acute embolism and thrombosis of left femoral vein (3) Hyperlipidemia Hyperlipidemia type: unspecified Qualified Code(s): E78.5 - Hyperlipidemia, unspecified (4) Hypertension Hypertension type: essential hypertension Qualified Code(s): I10 - Essential (primary) hypertension
[2019-12-08] MEDS: AMOXICILLIN/CLAVULANATE 875 MG TAB PO SCH (17:45)
[2019-12-08] MEDS: LACTOBACILLUS ACIDOPHILUS (FLORANEX) TAB PO SCH (22:02)
[2019-12-08] MEDS: QUEtiapine FUMARATE 200 MG TAB PO SCH (22:02)
[2019-12-09 06:41] LABS: BUN Creatinine Ratio 8.4 (10-20); Calcium 8.4 mg/dl (8.5-10.1); Creatinine Clr Calc Pharmacy 57.5 ml/min; Est GFR (African American) 100.6; Est GFR (Non-African American) 86.8; Potassium 3.4 mmol/L (3.5-5.1)
[2019-12-09] MEDS: THIAMINE HCL 100 MG TAB PO SCH ×2 (08:30→22:33)
[2019-12-09] MEDS: QUEtiapine FUMARATE 25 MG TABLET PO SCH (08:30)
[2019-12-09] MEDS: POTASSIUM CHLORIDE 10 MEQ TABCR PO SCH ×2 (08:30→22:33)
[2019-12-09] MEDS: SENNA 8.6 MG TAB PO SCH (08:30)
[2019-12-09] MEDS: AMOXICILLIN/CLAVULANATE 875 MG TAB PO SCH ×2 (08:30→17:49)
[2019-12-09] MEDS: CEROVITE ADV FORMULA TAB PO SCH (08:30)
[2019-12-09] MEDS: CHECK fentaNYL PATCH PLACEMENT SCH ×2 (08:30→17:49)
[2019-12-09] MEDS: LACTOBACILLUS ACIDOPHILUS (FLORANEX) TAB PO SCH ×3 (08:30→22:33)
[2019-12-09] MEDS: POTASSIUM CHLORIDE / WTR 10 MEQ/100 ML PLCT IV SCH ×2 (10:20→11:07)
[2019-12-09] MEDS: DAPTOmycin 375 MG in SYRINGE 0 ML IV SCH (12:26)
[2019-12-09] MEDS: ENOXAPARIN 80 MG/0.8 ML SYR SQ SCH (17:49)
--- NOTE | 2019-12-09 19:29 | Hospitalist Progress Note ---
Date of Service December 09, 2019 Assessment & Plan (1) DVT (deep venous thrombosis): LLE she developed the DVT despite appropriate DVT proph with heparin SC. cont lovenox 1.5mg/kg/day (70mg) daily and treat for 6 months poor candidate for coumadin due to inconsistent eating and low body weight poor candidate for novel agent as well lovenox will provide most consistent anticoagulation (2) Positive blood culture: 1/8 bottles + for MRSA. 4 of the bottles were drawn at [facility] ER and are negative. Typically 1 bottle out of 8 would be considered contamination. However, the pathogen was MRSA. Cont 14-day course of daptomycin (or vanco) for such. Today is day #6 of daptomycin. When she returns to SNF will need to use vanco IV in francisca of dapto. Echo w/o endocarditis. Recheck blood cx's in AM for sterility. (3) Acute parotitis: LEFT. Continues to improve. Nearly resolved. Completed 7 days of zosyn. Now day #2 of 3 of augmentin. cont daptomycin which will provide MRSA coverage. (4) UTI (urinary tract infection): POA. 2nd to pseudomonas (resistant to quinolones) and enterococcus - sensitive to ampicillin. finished 7-day course of zosyn. remove dawkins. (5) Dementia with behavioral disturbance: dementia advanced will ask palliative care to define goals of care with pt's twin sister, Nu, and her brother in law Harjinder who has HCPOA (6) Hyperlipidemia: hold statin while on daptomycin (7) Hypertension: controlled without meds (8) SDH (subdural hematoma): noted history of (9) Dehydration: resolved however, nutrition continues to be poor suspect this is chronic issue due to advanced dementia (10) Underweight: BMI 17 per our records nearly 20kg of weight loss since 2019 likely due to advanced dementia cannot rule out other factors (11) Severe protein-calorie malnutrition: nearly 20 kg of weight loss in 1 year likely due to advanced dementia (12) Exposure to COVID-19 virus: while at [facility] patient shared a room with a patient that ultimately tested + for COVID-19 patient herself was tested at [facility] but it was several hours after the exposure without question her exposure would not lead to a positive test result that quickly the test at [place] was negative the exposure occurred 12/02/2019 thus, due to high risk of jean pierre the virus given advanced age, etc -- she is a PUI and remains in isolation watch for development of symptoms/signs of COVID - thus far no evidence of COVID she needs 14 days of quarantine in total today is day #7 of such [facility] ran a COVID test several days ago - this was negative may need 2nd test prior to d/c back to [facility] in [place] (13) Chronic kidney disease, stage 3a: baseline CrCl 30s/40s stable BMP am (14) Hypokalemia: 2nd poor PO intake replace IV repeat BMP am (15) DVT prophylaxis: lovenox left message for Nu Welsh (sister) on voicemail 12/03 and 12/04 and 12/06 finally spoke with Nu and Nu's , Harjinder, on 12/08/19 questions answered at that time Nu's , Harjinder, holds healthcare POA they told me they didn't have the power to change her code status I explained to them they were mistaken Harjinder read me the document he has which authorizes him to make medical decisions on her behalf I asked them to discuss her code status together and let me know what they want to do will involve palliative care to do POLST, etc cont PT, OT d/c to SNF next 1-2 days will need u/s-guided IV for remainder of IV dapto/vanco course Admission and Anticipated Discharge Date Admission Date: December 02, 2019 Subjective no issues overnight patient sleeping upon my arrival woke up during the exam today was quite "feisty" - she got upset when I tried to check her O2 sats on her finger O2 sats were 98% in room air before she got modestly agitated she otherwise was comfortable-appearing appetite remains very, very poor per staff Review of Systems Review of Systems: Unobtainable due to cognitive status Physical Exam Constitutional: + thin, + altered mental status and + frail appearing; + not well developed, + not well nourished and no acute distress Eyes: no conjunctival abnormality and no scleral abnormality ENMT: Mouth: + dry oral mucous membranes left parotid gland nearly back to normal today; minimal swelling; not tender; no erythema Respiratory: normal respiratory effort, lungs clear to auscultation Auscultation: + diminished lung sounds (Bases) Cardiovascular: Rate/Rhythm: regular rate and regular rhythm Heart Sounds: normal S1 and normal S2 Vessels: posterior tibial pulses present and dorsalis pedis pulses present; no JVD Extremities: no edema Gastrointestinal (Abdomen): normal bowel sounds, soft, nontender, no hepatosplenomegaly Psychiatric: Orientation: + not oriented x 3 Results & Data Results & Data ([facility]) Vital Signs (Past 12 Hours) Vital Signs Temp Pulse Pulse Resp BP Pulse Ox 12/09/19 14:39 36.5 C 95 H 17 135/81 91 12/09/19 07:51 36.6 C 86 16 138/65 96 Laboratory Results Laboratory Results - last 24 hr 12/09/19 05:32 Sodium 140 Potassium 3.4 L D Chloride 108 H Carbon Dioxide 24 Anion Gap 8.0 BUN 5 L Creatinine 0.61 Est Cr Clr Drug Dosing 57.5 Est GFR ( Amer) 100.6 Est GFR (Non-Af Amer) 86.8 BUN/Creatinine Ratio 8.4 L Glucose 66 L Calcium 8.4 L PG Care Time/CCT Total # of Minutes Spent Total Time Spent with Patient: Total time spent is greater than 50% in coordination of care (as documented) at patient's floor/unit and/or counseling patient: Coding Level of Care Code 81743 Subseq Hosp Care Lvl 3 Diagnoses DVT (deep venous thrombosis) I82.412 Affected thrombotic vein of extremity: femoral Chronicity: acute DVT location: lower extremity Laterality: left Positive blood culture R78.81 Acute parotitis K11.21 UTI (urinary tract infection) N39.0 Dementia with behavioral disturbance F03.91 Dementia type: unspecified type Hyperlipidemia E78.5 Hyperlipidemia type: unspecified Hypertension I10 Hypertension type: essential hypertension SDH (subdural hematoma) S06.5X9A Dehydration E86.0 Underweight R63.6 Severe protein-calorie malnutrition E43 Exposure to COVID-19 virus Z20.828 Chronic kidney disease, stage 3a N18.3 Hypokalemia E87.6 DVT prophylaxis Z29.9 (1) Dementia with behavioral disturbance Dementia type: unspecified type Qualified Code(s): F03.91 - Unspecified dementia with behavioral disturbance (2) DVT (deep venous thrombosis) Affected thrombotic vein of extremity: femoral Chronicity: acute DVT location: lower extremity Laterality: left Qualified Code(s): I82.412 - Acute embolism and thrombosis of left femoral vein (3) Hyperlipidemia Hyperlipidemia type: unspecified Qualified Code(s): E78.5 - Hyperlipidemia, u nspecified (4) Hypertension Hypertension type: essential hypertension Qualified Code(s): I10 - Essential (primary) hypertension
[2019-12-09] MEDS: QUEtiapine FUMARATE 200 MG TAB PO SCH (22:33)
[2019-12-10] MEDS: CHECK fentaNYL PATCH PLACEMENT SCH ×3 (00:09→16:28)
[2019-12-10 06:36] LABS: Hematocrit (blood only) 25.3 % (37-47); Mean Corpuscular Hemoglobin 26.6 pg (25-34); Mean Corpuscular Hgb Conc 31.6 g/dL (32-36); Mean Corpuscular Volume 84.1 fL (80-100); Mean Platelet Volume 9.1 fL (7.4-10.4); Platelet Count 290 K/uL (130-400); RDW Coefficient of Variation 15.4 % (11.5-14.5); RDW Standard Deviation 46.8 fL (36.4-46.3); Red Blood Count 3.01 M/uL (4.2-5.4); White Blood Count 3.45 K/uL (4.8-10.8)
[2019-12-10 06:56] LABS: BUN Creatinine Ratio 10.8 (10-20); Calcium 8.1 mg/dl (8.5-10.1); Creatinine Clr Calc Pharmacy 61.9 ml/min; Est GFR (African American) 102.9; Est GFR (Non-African American) 88.8; Potassium 3.8 mmol/L (3.5-5.1)
[2019-12-10] MEDS ORDERED: VANCOMYCIN CONSULT ACTIVE PRN (08:56)
[2019-12-10] MEDS: CEROVITE ADV FORMULA TAB PO SCH (08:59)
[2019-12-10] MEDS: THIAMINE HCL 100 MG TAB PO SCH ×2 (09:00→21:51)
[2019-12-10] MEDS: SENNA 8.6 MG TAB PO SCH ×2 (09:00→09:03)
[2019-12-10] MEDS ORDERED: VANCOMYCIN HCL 1,000 MG in SODIUM CHLORIDE 0.9% 250 ML IV SCH (09:00)
[2019-12-10] MEDS: QUEtiapine FUMARATE 25 MG TABLET PO SCH (09:00)
[2019-12-10] MEDS: LACTOBACILLUS ACIDOPHILUS (FLORANEX) TAB PO SCH ×3 (09:00→21:51)
[2019-12-10] MEDS: POTASSIUM CHLORIDE 10 MEQ TABCR PO SCH (09:17)
[2019-12-10] MEDS: AMOXICILLIN/CLAVULANATE 875 MG TAB PO SCH ×2 (10:52→18:32)
[2019-12-10] MEDS: POTASSIUM CHLORIDE PWD 20 MEQ PACK PO SCH ×2 (10:52→21:51)
[2019-12-10] MEDS: FERROUS SULFATE 325 MG TAB PO SCH (10:53)
[2019-12-10] MEDS: DAPTOmycin 375 MG in SYRINGE 0 ML IV SCH (13:17)
--- NOTE | 2019-12-10 15:44 | Palliative Care Consultation ---
Date of Consultation December 10, 2019 Assessment & Plan (1) Counseling regarding advance directives and goals of care: Patient is a 79-year-old female with Alzheimer's disease with severe dementia, dysphasia, history of SDH-05/31/2018, protein calorie malnutrition, CKD stage III, hypertension ,anemia with poor p.o. intake who was sent to [facility] for left-sided facial swelling-she was diagnosed with left parotiditis and transferred to [facility]. She was treated with IV Zosyn and switch to p.o. Augmentin. Patient on daptomycin for possible MRSA. Patient with COVID exposure-roommate at facility was positive, patient has been negative on repeat testing here -Patient unable to participate in any discussions regarding CODE STATUS or goals of care due to advanced dementia -Alzheimer's disease with dementia and behavioral disturbance-on Seroquel and PRN Ativan -Patient on fentanyl-has a prior history of LS spine fractures. -Protein calorie malnutrition-patient with significant weight loss over the past year-reportedly 20 kg-poor p.o. intake with dysphasia -Patient's CODE STATUS is full code-LORNE is her [id number], of her twin Sister Nu, [phone]. Called number, no answer, no mailbox in which to leave a voicemail. -Patient reportedly has a living will-family thinks that they cannot change her CODE STATUS because of the living will, need to address possible PEG tube placement versus return to [facility] for continued care. (2) Severe protein-calorie malnutrition: (3) Exposure to COVID-19 virus: (4) Chronic kidney disease, stage 3a: (5) Dementia with behavioral disturbance: Dementia type: Alzheimer's disease (6) Dysphasia: History of Present Illness Reason for Consultation: Address CODE STATUS with family as well as goals of care Requesting Physician: Dr Coronel Attending Physician: Artem Coronel History of Present Illness Patient is a 79-year-old female with Alzheimer's disease with severe dementia, dysphasia, history of SDH-05/31/2018, protein calorie malnutrition, CKD stage III, hypertension ,anemia with poor p.o. intake who was sent to [facility] from [facility] for left-sided facial swelling-she was diagnosed with left p arotiditis and transferred to [facility]. She was treated with IV Zosyn and switch to p.o. Augmentin. Patient on daptomycin for possible MRSA. Patient with COVID exposure-roommate at facility was positive, patient has been negative on repeat testing here -Patient unable to participate in any discussions regarding CODE STATUS or goals of care due to advanced dementia -Alzheimer's disease with dementia and behavioral disturbance-on Seroquel and PRN Ativan -Patient on fentanyl-has a prior history of LS spine fractures. -Protein calorie malnutrition-patient with significant weight loss over the past year-reportedly 20 kg-poor p.o. intake with dysphasia -Patient's CODE STATUS is full code-LORNE is her [id number], of her twin Sister Nu, [phone]. Called number, no answer, no mailbox in which to leave a voicemail. -Patient reportedly has a living will-family thinks that they cannot change her CODE STATUS because of the living will, need to address possible PEG tube place ment versus return to [facility] for continued care. Allergies Allergy/AdvReac Type Severity Reaction Status Date / Time Unable to Assess Allergy Unverified 10/03/18 12:54 Home Medications Home Medications Medication Instructions Recorded Confirmed Type rosuvastatin 5 mg PO DAILY 05/31/18 05/31/18 History acetaminophen 325 mg tablet 650 mg PO Q4H PRN tab 10/03/18 10/03/18 History potassium chloride 20 mEq 20 meq PO DAILY PRN #30 tab 10/03/18 10/03/18 Rx tablet,extended release(part/cryst) quetiapine 25 mg tablet 25 mg PO BID #60 tab 11/02/18 Rx donepezil 10 mg tablet 10 mg PO DAILY #90 tab 12/14/18 Rx fentanyl 12 mcg TRANSDERMAL Q3D 12/02/19 12/03/19 History ferrous sulfate 325 mg PO Q OTHER DAY 12/02/19 12/02/19 History magnesium hydroxide [Milk of 400 mg PO DAILY PRN 12/02/19 12/02/19 History Magnesia] polyethylene glycol 3350 [Miralax] 17 g PO DAILY PRN 12/02/19 12/02/19 History quetiapine [Seroquel] 50 mg PO DAILY 12/02/19 12/02/19 History quetiapine [Seroquel] 200 mg PO HS 12/02/19 12/02/19 History tramadol [Ultram] 50 mg PO Q8H PRN 12/02/19 12/02/19 History lorazepam 0.5 mg PO Q6H PRN 12/03/19 12/03/19 History Patient History Medical History (Updated 12/10/19 @ 15:58 by Kim Jones MD) Colon wall thickening Dementia with behavioral disturbance Hyperlipidemia Hypertension Leg edema Low back pain 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) Sensorineural hearing loss (SNHL) of both ears Surgical History (Updated 10/03/18 @ 12:15 by Ginette Jay) History of eye surgery Family History (Updated 10/03/18 @ 12:17 by Ginette Jay) Unknown Alcohol abuse Anxiety Cancer Lung disease Cardiac disorder Breast cancer Ovarian cancer Myocardial infarction Other Family history non-contributory Social History Smoking Status: Unknown if ever smoked Communication Ability: Impaired marital status: Unknown Current Living Situation: Retirement Feels Safe at Home: Yes Review of Systems Review of Systems: Unobtainable due to cognitive status Physical Exam Physical Exam: PE: Patient minimally responsive to voice or touch HEENT: Dry mucous membranes Respirations: Unlabored, clear breath sounds, no rhonchi CV: Regular rate Abdomen: Soft, no grimace with palpation Neuro: Did not awaken during exam Results & Data ([facility]) Vital Signs (Past 12 Hours) Vital Signs Temp Pulse Resp BP Pulse Ox 12/10/19 15:05 97.2 F L 94 H 18 129/75 94 12/10/19 08:56 97.2 F L 98 H 20 146/61 H 94 PG Care Time/CCT Total # of Minutes Spent Total Time Spent with Patient: Total time spent is greater than 50% in coordination of care (as documented) at patient's floor/unit and/or counseling patient: Coding Level of Care Code 86362 Inpt Consult Level 1 Diagnoses Counseling regarding advance directives and goals of care Z71.89 Severe protein-calorie malnutrition E43 Exposure to COVID-19 virus Z20.828 Chronic kidney disease, stage 3a N18.3 Dementia with behavioral disturbance F03.91 Dementia type: Alzheimer's disease Dysphasia R47.02 Time Spent (min) 45
[2019-12-10] MEDS: ENOXAPARIN 80 MG/0.8 ML SYR SQ SCH (16:26)
--- NOTE | 2019-12-10 19:26 | Hospitalist Progress Note ---
Date of Service December 10, 2019 Assessment & Plan (1) DVT (deep venous thrombosis): LLE she developed the DVT despite appropriate DVT proph with heparin SC while hospitalized. cont lovenox 1.5mg/kg/day (70mg) daily and treat for 6 months poor candidate for coumadin due to inconsistent eating and low body weight poor candidate for novel agent as well lovenox will provide most consistent anticoagulation (2) Positive blood culture: 1/8 bottles + for MRSA. 4 of the bottles were drawn at [facility] ER and are negative (final). Typically 1 bottle out of 8 would be considered contamination. However, the pathogen was MRSA. Cont 14-day course of daptomycin. Today is day #7 of daptomycin. Echo w/o endocarditis. Recheck blood cx's today for sterility. (3) Acute parotitis: LEFT. RESOLVED. Completed 7 days of zosyn. Now day #3 of 3 of augmentin. cont daptomycin which will provide MRSA coverage. (4) UTI (urinary tract infection): POA. 2nd to pseudomonas (resistant to quinolones) and enterococcus - sensitive to ampicillin. finished 7-day course of zosyn. removed dawkins. (5) Dementia with behavioral disturbance: dementia advanced will ask palliative care to define goals of care with pt's twin sister, Nu, and her brother in law Harjinder who has HCPOA (6) Hyperlipidemia: hold statin while on daptomycin (7) Hypertension: controlled without meds (8) SDH (subdural hematoma): noted history of (9) Dehydration: resolved however, nutrition continues to be poor suspect this is chronic issue due to advanced dementia sister and [id number] confirm poor PO intake chronically (10) Underweight: BMI 17 per our records nearly 20kg of weight loss since 2019 likely due to advanced dementia cannot rule out other factors (11) Severe protein-calorie malnutrition: nearly 20 kg of weight loss in 1 year likely due to advanced dementia (12) Exposure to COVID-19 virus: while at [facility] patient shared a room with a patient that ultimately tested + for COVID-19 patient herself was tested at [facility] but it was several hours after the exposure without question her exposure would not lead to a positive test result that quickly the test at [place] was negative the exposure occurred 12/02/2019 thus, due to high risk of jean pierre the virus given advanced age, etc -- she is a PUI and remains in isolation watch for development of symptoms/signs of COVID - thus far no evidence of COVID she needs 14 days of quarantine in total today is day #8 of such [facility] ran a COVID test several days ago - this was negative 2nd test today negative (13) Chronic kidney disease, stage 3a: baseline CrCl 30s/40s stable BMP am (14) Hypokalemia: 2nd poor PO intake replaced and resolved (15) DVT prophylaxis: lovenox left message for Nu Welsh (sister) on voicemail 12/03 and 12/04 and 12/06 finally spoke with Nu and Nu's , Harjinder, on 12/08/19 questions answered at that time Nu's , Harjinder, holds healthcare POA they told me they didn't have the power to change her code status I explained to them they were mistaken Harjinder read me the document he has which authorizes him to make medical decisions on her behalf I asked them to discuss her code status together and let me know what they want to do will involve palliative care to do POLST, etc cont PT, OT d/c to SNF tomorrow tried to call Nu again today - no answer, could not leave message Admission and Anticipated Discharge Date Admission Date: December 02, 2019 Subjective staff report agitation at times but nothing physical or aggressive screaming, crying, and talking to herself with nonsensical speech during my visit poor appetite occasionally spits out meds Review of Systems Review of Systems: Unobtainable due to cognitive status Physical Exam Constitutional: + thin, + altered mental status and + frail appearing; + not well developed, + not well nourished and no acute distress Eyes: no conjunctival abnormality and no scleral abnormality ENMT: Mouth: + dry oral mucous membranes left parotid gland has returned to normal; no swelling or tenderness or erythema Respiratory: normal respiratory effort, lungs clear to auscultation Cardiovascular: Rate/Rhythm: regular rate and regular rhythm Heart Sounds: normal S1 and normal S2 Vessels: posterior tibial pulses present and dorsalis pedis pulses present; no JVD Extremities: no edema Gastrointestinal (Abdomen): normal bowel sounds, soft, nontender, no hepatosplenomegaly Psychiatric: Orientation: + not oriented x 3 Results & Data Results & Data ([facility]) Vital Signs (Past 12 Hours) Vital Signs Temp Pulse Resp BP Pulse Ox 12/10/19 15:05 36.2 C L 94 H 18 129/75 94 12/10/19 08:56 36.2 C L 98 H 20 146/61 H 94 Laboratory Results Laboratory Results - last 24 hr 12/10/19 12/10/19 12/10/19 06:22 06:22 06:22 WBC 3.45 L RBC 3.01 L Hgb 8.0 L Hct 25.3 L MCV 84.1 MCH 26.6 MCHC 31.6 L RDW Std Deviation 46.8 H RDW Coeff of Wilmer 15.4 H Plt Count 290 MPV 9.1 Sodium 140 Potassium 3.8 Chloride 107 Carbon Dioxide 21 Anion Gap 12.0 H BUN 6 L Creatinine 0.57 L Est Cr Clr Drug Dosing 61.9 Est GFR ( Amer) 102.9 Est GFR (Non-Af Amer) 88.8 BUN/Creatinine Ratio 10.8 Glucose 59 L Calcium 8.1 L Total Creatine Kinase 49 Random Cortisol COVID-19 Eval Order SARS-CoV-2, RNA, NAAT 12/10/19 12/10/19 12/10/19 09:21 Unknown Unknown WBC RBC Hgb Hct MCV MCH MCHC RDW Std Deviation RDW Coeff of Wilmer Plt Count MPV Sodium Potassium Chloride Carbon Dioxide Anion Gap BUN Creatinine Est Cr Clr Drug Dosing Est GFR ( Amer) Est GFR (Non-Af Amer) BUN/Creatinine Ratio Glucose Calcium Total Creatine Kinase Random Cortisol 19.41 COVID-19 Eval Order [facility] SARS-CoV-2, RNA, NAAT NEGATIVE PG Care Time/CCT Total # of Minutes Spent Total Time Spent with Patient: Total time spent is greater than 50% in coordination of care (as documented) at patient's floor/unit and/or counseling patient: Coding Level of Care Code 69817 Subseq Hosp Care Lvl 2 Diagnoses DVT (deep venous thrombosis) I82.412 Affected thrombotic vein of extremity: femoral Chronicity: acute DVT location: lower extremity Laterality: left Positive blood culture R78.81 Acute parotitis K11.21 UTI (urinary tract infection) N39.0 Dementia with behavioral disturbance F03.91 Dementia type: Alzheimer's disease Hyperlipidemia E78.5 Hyperlipidemia type: unspecified Hypertension I10 Hypertension type: essential hypertension SDH (subdural hematoma) S06.5X9A Dehydration E86.0 Underweight R63.6 Severe protein-calorie malnutrition E43 Exposure to COVID-19 virus Z20.828 Chronic kidney disease, stage 3a N18.3 Hypokalemia E87.6 DVT prophylaxis Z29.9 (1) Dementia with behavioral disturbance Dementia type: Alzheimer's disease (2) DVT (deep venous thrombosis) Affected thrombotic vein of extremity: femoral Chronicity: acute DVT location: lower extremity Laterality: left Qualified Code(s): I82.412 - Acute embolism and thrombosis of left femoral vein (3) Hyperlipidemia Hyperlipidemia type: unspecified Qualified Code(s): E78.5 - Hyperlipidemia, unspecified (4) Hypertension Hypertension type: essential hypertension Qualified Code(s): I10 - Essential (primary) hypertension
[2019-12-10] MEDS: QUEtiapine FUMARATE 200 MG TAB PO SCH (21:51)
[2019-12-11] MEDS: CHECK fentaNYL PATCH PLACEMENT SCH ×4 (00:04→23:40)
[2019-12-11 08:21] LABS: BUN Creatinine Ratio 13.3 (10-20); Calcium 8.7 mg/dl (8.5-10.1); Creatinine Clr Calc Pharmacy 59.2 ml/min; Est GFR (African American) 101.2; Est GFR (Non-African American) 87.3; Potassium 3.8 mmol/L (3.5-5.1)
[2019-12-11] MEDS: FERROUS SULFATE 325 MG TAB PO SCH (08:38)
[2019-12-11] MEDS: POTASSIUM CHLORIDE PWD 20 MEQ PACK PO SCH ×2 (08:42→20:53)
[2019-12-11] MEDS: LACTOBACILLUS ACIDOPHILUS (FLORANEX) TAB PO SCH ×3 (08:42→20:53)
[2019-12-11] MEDS: AMOXICILLIN/CLAVULANATE 875 MG TAB PO SCH (08:42)
[2019-12-11] MEDS: QUEtiapine FUMARATE 25 MG TABLET PO SCH (08:43)
[2019-12-11] MEDS: THIAMINE HCL 100 MG TAB PO SCH ×2 (08:43→20:52)
[2019-12-11] MEDS: CEROVITE ADV FORMULA TAB PO SCH (08:43)
[2019-12-11] MEDS: SENNA 8.6 MG TAB PO SCH (08:43)
[2019-12-11] MEDS: fentaNYL 12 MCG/HR TDSY TD SCH (08:57)
--- NOTE | 2019-12-11 09:45 | Palliative Care Progress Note ---
Date of Service December 11, 2019 Assessment & Plan (1) Counseling regarding advance directives and goals of care: Patient is a 79-year-old female with Alzheimer's disease with severe dementia, dysphasia, history of SDH-05/31/2018, protein calorie malnutrition, CKD stage III, hypertension ,anemia with poor p.o. intake who was sent to [facility] from [facility] for left-sided facial swelling-she was diagnosed with left parotiditis and transferred to [facility]. She was treated with IV Zosyn and switch to p.o. Augmentin. Patient on daptomycin for possible MRSA. Patient with COVID exposure-roommate at facility was positive, patient has been negative on repeat testing here -Patient unable to participate in any discussions regarding CODE STATUS or goals of care due to advanced dementia -Alzheimer's disease with dementia and behavioral disturbance-on Seroquel and PRN Ativan -Patient on fentanyl-has a prior history of LS spine fractures. -Protein calorie malnutrition-patient with significant weight loss over the past year-reportedly 20 kg-poor p.o. intake with dysphasia -Patient's CODE STATUS is full code-POA is her [id number], of her twin Sister Nu. -Having a difficult time reaching family. New numbers ovtained today. [phone] (home), (Nu's cell phone), and [phone] (Harjinder's cell phone). Called all 3 with no success. Left VM on the later two. -Patient reportedly has a living will-family thinks that they cannot change her CODE STATUS because of the living will, need to address possible PEG tube placement versus return to [facility] for continued care. -Will continue efforts tomorrow to reach family and comform plans prior to pt return to [facility]. (2) Severe protein-calorie malnutrition: (3) Exposure to COVID-19 virus: (4) Chronic kidney disease, stage 3a: (5) Dementia with behavioral disturbance: (6) Dysphasia: Admission and Anticipated Discharge Date Admission Date: December 02, 2019 Subjective Pt is lying in her bed and appearing uncomfortable. No family at bedside. Pt reportedly spitting out some meds per nursing staff. See A/P for further details. Review of Systems Review of Systems: Unobtainable due to cognitive status Physical Exam Physical Exam: PE: Patient minimally responsive to voice or touch HEENT: Dry mucous membranes Respirations: Unlabored, clear breath sounds, no rhonchi CV: Regular rate Abdomen: Soft, no grimace with palpation Neuro: Did not awaken during exam Results & Data ([facility]) Vital Signs (Past 12 Hours) Vital Signs Temp Pulse Pulse Resp BP BP Pulse Ox 12/11/19 08:30 36.7 C 88 15 138/71 95 12/11/19 00:06 36.6 C 95 H 16 138/91 91 PG Care Time/CCT Total # of Minutes Spent Total Time Spent with Patient: Total time spent is greater than 50% in coordination of care (as documented) at patient's floor/unit and/or counseling patient: 35 Coding Level of Care Code 52712 Subseq Hosp Care Lvl 3 Diagnoses Counseling regarding advance directives and goals of care Z71.89 Severe protein-calorie malnutrition E43 Exposure to COVID-19 virus Z20.828 Chronic kidney disease, stage 3a N18.3 Dementia with behavioral disturbance F03.91 Dementia type: Alzheimer's disease Dysphasia R47.02 Time Spent (min) 35 Time Spent Midlevel Total time spent 35 minutes with > 50% of that time spent assessing the patient, discussing goals of care with IDT and attempting to reach family. (1) Dementia with behavioral disturbance Dementia type: Alzheimer's disease
--- NOTE | 2019-12-11 11:31 | Discharge Summary ---
Date of Service December 11, 2019 Admission HPI Per Admitting Provider Patient unable to provide details of history or participate with physical exam due to underlying dementia. History obtained through chart review. Left message with patient's sister, Nu Welsh [phone]. 79yo C female with history of dementia with behavioral disturbance, HTN, HLP. She presented to [facility] from her [facility] today with complaint of left facial swelling. Workup at [facility] included a CT of the face which showede xtensive soft tissue swelling and subcutaneous stranding of left face and neck concerning for cellulitis and possibly inflammation of the left parotid and submandibular glands with no drainable collection or abscess. Also found to have bulky enlarged thyroid gland with heterogenous regions. Recommend followup with US. Additional studies at outside facility significant for Lactate=5.4, +UA, Cr=1.4, WBC=20.1 Patient with reported recent contact with a Covid-19 positive individual. Per report, Covid testing was sent at [facility], awaiting results. Discharge Exam Constitutional + thin, + altered mental status and + frail appearing; + not well developed, + not well nourished and no acute distress Eyes no conjunctival abnormality and no scleral abnormality ENMT Mouth: + dry oral mucous membranes Respiratory normal respiratory effort, lungs clear to auscultation Auscultation: + diminished lung sounds (Bases) Cardiovascular Rate/Rhythm: regular rate and regular rhythm Heart Sounds: normal S1 and normal S2 Vessels: posterior tibial pulses present and dorsalis pedis pulses present; no JVD Extremities: no edema Gastrointestinal (Abdomen) normal bowel sounds, soft, nontender, no hepatosplenomegaly Psychiatric Orientation: + not oriented x 3 Discharge Data Allergies Allergy/AdvReac Type Severity Reaction Status Date / Time Unable to Assess Allergy Unverified 10/03/18 12:54 Consultations 12/10/19 09:03 Consult Palliative Care Routine Ordered Studies 12/06/19 10:19 US venous doppler LE LT Urgent Hospital Course (1) DVT (deep venous thrombosis): LLE she developed the DVT despite appropriate DVT proph with heparin SC while hospitalized. cont lovenox 1.5mg/kg/day (70mg) daily and treat for 6 months poor candidate for coumadin due to inconsistent eating and low body weight poor candidate for novel agent as well lovenox will provide most consistent anticoagulation (2) Positive blood culture: 04/17 bottles + for MRSA. 4 of the bottles were drawn at [facility] ER and are negative (final). Typically 1 bottle out of 8 would be considered contamination. However, the pathogen was MRSA. Cont 14-day course of daptomycin. Today is day #7 of daptomycin. Echo w/o endocarditis. Recheck blood cx's today for sterility. (3) Acute parotitis: LEFT. RESOLVED. Completed 7 days of zosyn. Now day #3 of 3 of augmentin. cont daptomycin which will provide MRSA coverage. (4) UTI (urinary tract infection): POA. 2nd to pseudomonas (resistant to quinolones) and enterococcus - sensitive to ampicillin. finished 7-day course of zosyn. removed dawkins. (5) Dementia with behavioral disturbance: dementia advanced will ask palliative care to define goals of care with pt's twin sister, Nu, and her brother in law Harjinder who has HCPOA (6) Hyperlipidemia: hold statin while on daptomycin (7) Hypertension: controlled without meds (8) SDH (subdural hematoma): noted history of (9) Dehydration: resolved however, nutrition continues to be poor suspect this is chronic issue due to advanced dementia sister and wjfxveo-lu-nsc confirm poor PO intake chronically (10) Underweight: BMI 17 per our records nearly 20kg of weight loss since 2019 likely due to advanced dementia cannot rule out other factors (11) Severe protein-calorie malnutrition: nearly 20 kg of weight loss in 1 year likely due to advanced dementia (12) Exposure to COVID-19 virus: while at [facility] patient shared a room with a patient that ultimately tested + for COVID-19 patient herself was tested at [facility] but it was several hours after the exposure without question her exposure would not lead to a positive test result that quickly the test at [facility] was negative the exposure occurred 12/02/2019 thus, due to high risk of jean pierre the virus given advanced age, etc -- she is a PUI and remains in isolation watch for development of symptoms/signs of COVID - thus far no evidence of COVID she needs 14 days of quarantine in total today is day #8 of such [facility] ran a COVID test several days ago - this was negative 2nd test today negative (13) Chronic kidney disease, stage 3a: baseline CrCl 30s/40s stable BMP am (14) Hypokalemia: 2nd poor PO intake replaced and resolved (15) DVT prophylaxis: lovenox left message for Nu Welsh (sister) on voicemail 12/03 and 12/04 and 12/06 finally spoke with Nu and Nu's , Harjinder, on 12/08/19 questions answered at that time Nu's , Harjinder, holds healthcare POA they told me they didn't have the power to change her code status I explained to them they were mistaken Harjinder read me the document he has which authorizes him to make medical decisions on her behalf I asked them to discuss her code status together and let me know what they want to do will involve palliative care to do POLST, etc cont PT, OT d/c to SNF tomorrow tried to call Nu again today - no answer, could not leave message Discharge Plan Discharge Items Patient Disposition: Transfer Custodial Fac Reason For Visit: left-sided parotid gland infection Discharge Diagnosis: 1. left-sided parotitis (parotid gland infection) - resolved 2. urinary tract infection - resolved 3. bacteremia - 1 out of 8 blood cultures positive for MRSA - significance uncertain but treatment in progress 4. advanced, severe dementia 5. anemia 6. DVT of left leg now on lovenox daily 7. exposure to COVID-19 at [facility] on 12/02/2019 - quarantine needed for 14 days; COVID testing negative x 2 at [facility]; end-date of quarantine December 16, 2019. 8. chronic kidney disease stage 3 9. weight loss, failure to thrive, severe protein calorie malnutrition - 2nd to advanced dementia 10. goals of care discussion with HCPOA needed to address code status, POLST, and end-of-life care Activity: As commented below Activity Comment: bedrest Non-emergency contact: Primary Care Provider Call non-emergency contact if: your pain is not controlled, your pain is worsening and you have a fever Follow-up/Referrals: Austin Hay MD [Primary Care Provider] - Diet: Regular Diet Texture: Pureed (blended smooth) Addtl Attending Provider Instructions: Ms Redding was treated for the problems listed above in "discharge diagnoses." All infectious issues have improved while here. Due to patient's severe, end-stage dementia she has had very poor appetite the entire length of her stay. She has lost considerable weight over the last year - likely due to her dementia. Our palliative care team attempted to contact the patient's sister and uvgiqrs-xk-dor (he has HCPOA) to discuss code status, goals of care, and complete a POLST. It was challenging to connect with the patient's sister/nefsnhj-xo-xui while here. Recommendations - 1. complete a 6-day course of IV daptomycin - start date on 12/12/19. Stop date of 12/17/19. 2. complete 14-day quarantine period due to recent COVID-19 exposure; stop date of quarantine 12/16/19. 3. palliative care consultation & discussions with pt's sister and ruwbbob-dd-ffc. Prognosis is very, very poor with life expectancy of several months at most given her malnutrition and anorexia. 4. repeat CBC, BMP in 1 week for stability. 5. lovenox daily for 6 months. Recommend factor 10a level in 3-4 days for stability of lovenox. 6. f/u medical historian of [place] within 24 hours. 7. ok to discontinue peripheral IV after IV daptomycin course is complete. Pending Studies at Discharge: Yes Studies:: repeat blood cultures, but thus far negative Stand-Alone Forms: [facility] Skilled Items Patient informed of condition?: No DNR: No Discharge Level of Care: Skilled Communicable Disease: Yes Discharge Prognosis: Deteriorating Lines: US Guided Peripheral IV Urinary Catheter: No Medications and DC Order Prescriptions: New sennosides [Senokot] 8.6 mg Tablet 17.2 mg PO QAM Qty: 60 RF: 2 enoxaparin [Lovenox] 80 mg/0.8 mL Syringe 70 mg subcut DAILY@16 180 Days Qty: 180 RF: 0 Certavite-Antioxidant 18-400 mg-mcg Tablet 1 tab PO QAM Qty: 30 RF: 2 daptomycin 500 mg recon soln 375 mg IV DAILY 6 Days Qty: 6 RF: 0 Continued quetiapine 25 mg tablet 25 mg PO BID Qty: 60 RF: 5 acetaminophen 325 mg tablet 650 mg PO Q4H PRNRF: 0 polyethylene glycol 3350 [Miralax] 17 gram Powder In Packet 17 g PO DAILY PRN (Reason: Constipation) RF: 0 quetiapine [Seroquel] 200 mg Tablet 200 mg PO HS RF: 0 magnesium hydroxide [Milk of Magnesia] 400 mg/5 mL Suspension 400 mg PO DAILY PRN (Reason: Constipation) RF: 0 quetiapine [Seroquel] 50 mg Tablet 50 mg PO DAILY RF: 0 tramadol [Ultram] 50 mg Tablet 50 mg PO Q8H PRN (Reason: Pain) Qty: 30 RF: 0 lorazepam 0.5 mg tablet 0.5 mg PO Q6H PRN (Reason: Agitation) Qty: 30 RF: 0 fentanyl 12 mcg/hr Patch 72 Hour 12 mcg transdermal Q3D Qty: 10 RF: 0 Changed ferrous sulfate 325 mg (65 mg iron) Tablet 325 mg PO DAILY Qty: 30 RF: 2 Discontinued donepezil 10 mg tablet 10 mg PO DAILY Qty: 90 RF: 3 potassium chloride [Klor-Con M20] 20 mEq tablet,ER particles/crystals 20 meq PO DAILY PRN (Reason: edema) Qty: 30 RF: 2 rosuvastatin 5 mg tablet 5 mg PO DAILY RF: 0 Discharge Orders: Discharge Order (Routine); Ordered 12/11/19 Ordered By: Artem Coronel Admission Data Admit Date/Time: 12/02/19 23:06 Attending Provider: Artem Coronel Admit Provider: Contreras Zabala Primary Care Provider: Austin Hay Other Providers: Kim Jones Other Interventions: Discharge Summary Assessment (RN) Last Done: 12/11/19 12:23 Coding Diagnoses DVT (deep venous thrombosis) I82.412 Affected thrombotic vein of extremity: femoral Chronicity: acute DVT location: lower extremity Laterality: left Positive blood culture R78.81 Acute parotitis K11.21 UTI (urinary tract infection) N39.0 Dementia with behavioral disturbance F03.91 Dementia type: Alzheimer's disease Hyperlipidemia E78.5 Hyperlipidemia type: unspecified Hypertension I10 Hypertension type: essential hypertension SDH (subdural hematoma) S06.5X9A Dehydration E86.0 Underweight R63.6 Severe protein-calorie malnutrition E43 Exposure to COVID-19 virus Z20.828 Chronic kidney disease, stage 3a N18.3 Hypokalemia E87.6 DVT prophylaxis Z29.9
[2019-12-11] MEDS: DAPTOmycin 375 MG in SYRINGE 0 ML IV SCH (13:07)
[2019-12-11] MEDS: ENOXAPARIN 80 MG/0.8 ML SYR SQ SCH (17:28)
[2019-12-11] MEDS: QUEtiapine FUMARATE 200 MG TAB PO SCH (20:51)
--- NOTE | 2019-12-11 21:49 | Hospitalist Progress Note ---
Date of Service December 11, 2019 Assessment & Plan (1) Acute parotitis: LEFT. RESOLVED. Completed 7 days of zosyn then 3 days of augmentin. Also received IV daptomycin for MRSA coverage during that duration. (2) DVT (deep venous thrombosis): LLE she developed the DVT despite appropriate DVT proph with heparin SC while hospitalized. cont lovenox 1.5mg/kg/day (70mg) daily and treat for 6 months poor candidate for coumadin due to inconsistent eating and low body weight poor candidate for novel agent as well (3) Positive blood culture: 1/8 bottles + for MRSA. 4 of the bottles were drawn at [facility] ER and were negative (final). Typically 1 bottle out of 8 would be considered contamination. However, the pathogen was MRSA. Thus, will Rx with a 14-day course of daptomycin to be safe. Today is day #8 of daptomycin. Echo w/o endocarditis. Repeat blood cx's from 12/10/19 remain negative. (4) Exposure to COVID-19 virus: while at [facility] patient shared a room with a patient that ultimately tested + for COVID-19 this was on 12/02/19 patient herself was tested at [facility] but it was several hours after the exposure without question her exposure would not lead to a positive test result that quickly the patient's test at [facility] was indeed negative thus, due to high risk of jean pierre the virus given advanced age, etc -- she is a PUI and remains in airborne isolation watch for development of symptoms/signs of COVID - thus far no evidence of COVID she needs 14 days of quarantine in total today is day #9 of such 2 rapid COVID tests during this hospital stay have been negative (5) UTI (urinary tract infection): POA. 2nd to pseudomonas and enterococcus. finished 7-day course of zosyn. removed dawkins. (6) Dementia with behavioral disturbance: dementia advanced have asked palliative care to define goals of care with pt's twin sister, Nu, and her brother in law Harjinder who has HCPOA cont seroquel (7) Hyperlipidemia: would d/c statin unlikely to provide any benefit to patient in light of advanced dementia (8) Hypertension: controlled without meds (9) SDH (subdural hematoma): noted history of (10) Dehydration: resolved with stable BMP today however, nutrition continues to be poor this is chronic issue due to advanced dementia sister and onxcpgd-jp-cwe confirm poor PO intake chronically and ongoing weight loss (11) Severe protein-calorie malnutrition: nearly 20 kg of weight loss in 1 year likely due to advanced dementia (12) Chronic kidney disease, stage 3a: baseline CrCl 30s/40s BMP stable today (13) Hypokalemia: 2nd poor PO intake replaced and resolved (14) DVT prophylaxis: lovenox therapeutic 1.5mg/kg/day left message for Nu Welsh (sister) on voicemail 12/03 and 12/04 and 12/06 attempted to call Nu on 12/10/19 -- no answer, could not leave a message spoke with Nu and Nu's , Harjinder, on 12/08/19 questions answered at that time Nu's , Harjinder, holds healthcare POA they told me they didn't have the power to change her code status (?) Harjinder read me the document he has which authorizes him to make medical decisions on her behalf have consulted palliative care to do formal POLST, address code status, and address goals of care with Nu & Harjinder in light of Ms Redding's progressive weight loss & decline d/c to SNF today if authorization has been obtained 45 minutes spent today preparing patient's anticipated d/c Admission and Anticipated Discharge Date Admission Date: December 02, 2019 Subjective poor appetite continues. patient spit her pills out during AM med pass. no new issues. intermittently screams - has been doing such since admission. Review of Systems Review of Systems: Unobtainable due to cognitive status Physical Exam Constitutional: + thin, + altered mental status and + frail appearing; + not well developed, + not well nourished and no acute distress Eyes: no conjunctival abnormality and no scleral abnormality ENMT: Mouth: + dry oral mucous membranes left parotid gland has returned to normal size; no tenderness; no erythema; no swelling. Respiratory: normal respiratory effort, lungs clear to auscultation Auscultation: + diminished lung sounds (Bases) Cardiovascular: Rate/Rhythm: regular rate and regular rhythm Heart Sounds: normal S1 and normal S2 Vessels: posterior tibial pulses present and dorsalis pedis pulses present; no JVD Extremities: no edema Gastrointestinal (Abdomen): normal bowel sounds, soft, nontender, no hepatosplenomegaly Inspection/Auscultation: + visible pulsation (prominent aortic pulsation ) Psychiatric: Orientation: + not oriented x 3 opens eyes but does not follow commands; screams at times; talks but speech is not comprehensible Results & Data Results & Data ([facility]) Vital Signs (Past 12 Hours) Vital Signs Temp Pulse Pulse Pulse Resp BP BP 12/11/19 15:40 37.2 C 105 H 20 131/77 12/11/19 12:23 36.7 C 95 H 86 88 15 138/71 138/91 Pulse Ox 12/11/19 15:40 96 12/11/19 12:23 95 Laboratory Results Laboratory Results - last 24 hr 12/11/19 07:26 Sodium 139 Potassium 3.8 Chloride 106 Carbon Dioxide 22 Anion Gap 11.0 BUN 8 Creatinine 0.60 Est Cr Clr Drug Dosing 59.2 Est GFR ( Amer) 101.2 Est GFR (Non-Af Amer) 87.3 BUN/Creatinine Ratio 13.3 Glucose 64 L Calcium 8.7 PG Care Time/CCT Total # of Minutes Spent Total Time Spent with Patient: Total time spent is greater than 50% in coordination of care (as documented) at patient's floor/unit and/or counseling patient: Coding Level of Care Code 43773 Subseq Hosp Care Lvl 3 Diagnoses Acute parotitis K11.21 DVT (deep venous thrombosis) I82.412 Affected thrombotic vein of extremity: femoral Chronicity: acute DVT location: lower extremity Laterality: left Positive blood culture R78.81 Exposure to COVID-19 virus Z20.828 UTI (urinary tract infection) N39.0 Dementia with behavioral disturbance F03.91 Dementia type: Alzheimer's disease Hyperlipidemia E78.5 Hyperlipidemia type: unspecified Hypertension I10 Hypertension type: essential hypertension SDH (subdural hematoma) S06.5X9A Dehydration E86.0 Severe protein-calorie malnutrition E43 Chronic kidney disease, stage 3a N18.3 Hypokalemia E87.6 DVT prophylaxis Z29.9 (1) Dementia with behavioral disturbance Dementia type: Alzheimer's disease (2) DVT (deep venous thrombosis) Affected thrombotic vein of extremity: femoral Chronicity: acute DVT location: lower extremity Laterality: left Qualified Code(s): I82.412 - Acute embolism and thrombosis of left femoral vein (3) Hyperlipidemia Hyperlipidemia type: unspecified Qualified Code(s): E78.5 - Hyperlipidemia, unspecified (4) Hypertension Hypertension type: essential hypertension Qualified Code(s): I10 - Essential (primary) hypertension
[2019-12-12 06:39] LABS: Hematocrit (blood only) 25.1 % (37-47); Mean Corpuscular Hemoglobin 26.8 pg (25-34); Mean Corpuscular Hgb Conc 31.9 g/dL (32-36); Mean Corpuscular Volume 83.9 fL (80-100); Mean Platelet Volume 9.1 fL (7.4-10.4); Platelet Count 296 K/uL (130-400); RDW Coefficient of Variation 15.9 % (11.5-14.5); RDW Standard Deviation 47.9 fL (36.4-46.3); Red Blood Count 2.99 M/uL (4.2-5.4); White Blood Count 4.02 K/uL (4.8-10.8)
[2019-12-12] MEDS: CEROVITE ADV FORMULA TAB PO SCH (09:51)
[2019-12-12] MEDS: FERROUS SULFATE 325 MG TAB PO SCH (09:51)
[2019-12-12] MEDS: POTASSIUM CHLORIDE PWD 20 MEQ PACK PO SCH ×2 (09:51→21:03)
[2019-12-12] MEDS: SENNA 8.6 MG TAB PO SCH (09:51)
[2019-12-12] MEDS: LACTOBACILLUS ACIDOPHILUS (FLORANEX) TAB PO SCH ×3 (09:51→21:03)
[2019-12-12] MEDS: THIAMINE HCL 100 MG TAB PO SCH ×2 (09:51→21:03)
[2019-12-12] MEDS: QUEtiapine FUMARATE 25 MG TABLET PO SCH (09:51)
[2019-12-12] MEDS: CHECK fentaNYL PATCH PLACEMENT SCH ×3 (09:52→23:24)
[2019-12-12] MEDS: DAPTOmycin 375 MG in SYRINGE 0 ML IV SCH (13:32)
[2019-12-12] MEDS: ENOXAPARIN 80 MG/0.8 ML SYR SQ SCH (16:02)
[2019-12-12] MEDS: LORazepam 0.5 MG TAB PO PRN (17:26)
--- NOTE | 2019-12-12 20:09 | Hospitalist Progress Note ---
Date of Service December 12, 2019 Assessment & Plan (1) Acute parotitis: LEFT. RESOLVED. Completed 7 days of zosyn then 3 days of augmentin. Also received IV daptomycin for MRSA coverage during that duration. (2) DVT (deep venous thrombosis): LLE she developed the DVT despite appropriate DVT proph with heparin SC while hospitalized. cont lovenox 1.5mg/kg/day (70mg) daily and treat for 6 months poor candidate for coumadin due to inconsistent eating and low body weight poor candidate for novel agent as well (3) Positive blood culture: /8 bottles + for MRSA. 4 of the bottles were drawn at [facility] ER and were negative (final). Typically 1 bottle out of 8 would be considered contamination. However, the pathogen was MRSA. Thus, will Rx with a 14-day course of daptomycin to be safe. Today is day #9 of daptomycin. Echo w/o endocarditis. Repeat blood cx's from 12/10/19 remain negative. (4) Exposure to COVID-19 virus: while at [facility] patient shared a room with a patient that ultimately tested + for COVID-19 this was on 12/02/19 patient herself was tested at [facility] but it was several hours after the exposure without question her exposure would not lead to a positive test result that quickly the patient's test at [place] was indeed negative thus, due to high risk of jean pierre the virus given advanced age, etc -- she is a PUI and remains in airborne isolation watch for development of symptoms/signs of COVID - no apparent infection at this time - afebrile, no cough, no desaturations or labored breathing she needs 14 days of quarantine in total today is day #10 of such 2 rapid COVID tests during this hospital stay have been negative, last was 12/09 (5) UTI (urinary tract infection): POA. 2nd to pseudomonas and enterococcus. finished 7-day course of zosyn. removed dawkins. (6) Dementia with behavioral disturbance: dementia advanced have asked palliative care to define goals of care with pt's twin sister, Nu, and her brother in law Harjinder who has HCPOA. However they have thus far been unable to get ahold of family cont seroquel (7) Hyperlipidemia: would d/c statin unlikely to provide any benefit to patient in light of advanced dementia (8) Hypertension: controlled without meds (9) SDH (subdural hematoma): noted history of (10) Dehydration: resolved with stable BMP today however, nutrition continues to be poor this is chronic issue due to advanced dementia sister and nsmjvdv-mv-aik confirm poor PO intake chronically and ongoing weight loss (11) Severe protein-calorie malnutrition: nearly 20 kg of weight loss in 1 year likely due to advanced dementia (12) Chronic kidney disease, stage 3a: baseline CrCl 30s/40s BMP stable today (13) Hypokalemia: 2nd poor PO intake replaced and resolved (14) DVT prophylaxis: lovenox therapeutic 1.5mg/kg/day Dr. Coronel spoke with Nu and Nu's , Harjinder, on 12/08/19 questions answered at that time, he was unable to get in touch with them since then Nu's , Harjinder, holds healthcare POA they told me they didn't have the power to change her code status (?) Harjinder read me the document he has which authorizes him to make medical decisions on her behalf have consulted palliative care to do formal POLST, address code status, and address goals of care with Nu & Harjinder in light of Ms Redding's progressive weight loss & decline d/c to SNF when authorization goes through Admission and Anticipated Discharge Date Admission Date: December 02, 2019 Subjective Ms. Redding is unable to answer questions due to disorientation. She appears comfortable. She does not have labored breathing or cough. She does not appear to be in pain Physical Exam Physical Exam: General: no distress Eyes: normal inspection, PERLL Respiratory: chest non tender, clear to auscultation, normal breath sounds, no respiratory distress, no accessory muscle use Cardiac: regular rate and rhythm, no rub or gallop, no murmur, no edema, no jvd GI/: active bowel sounds, no abd pain or tenderness, soft, non distended Extremities: normal range of motion, normal strength, non tender Neuro/Psych: alert and disoriented, normal mood and affect Skin: normal color, dry Results & Data Results & Data ([facility]) Vital Signs (Past 12 Hours) Vital Signs Temp Pulse Resp BP Pulse Ox 12/12/19 15:48 36.4 C L 98 H 20 151/78 H 96 PG Care Time/CCT Total # of Minutes Spent Total Time Spent with Patient: Total time spent is greater than 50% in coordination of care (as documented) at patient's floor/unit and/or counseling patient: Coding Level of Care Code 00382 Subseq Hosp Care Lvl 2 Diagnoses Acute parotitis K11.21 DVT (deep venous thrombosis) I82.412 DVT location: lower extremity Affected thrombotic vein of extremity: femoral Chronicity: acute Laterality: left Positive blood culture R78.81 Exposure to COVID-19 virus Z20.828 UTI (urinary tract infection) N39.0 Dementia with behavioral disturbance F03.91 Dementia type: Alzheimer's disease Hyperlipidemia E78.5 Hyperlipidemia type: unspecified Hypertension I10 Hypertension type: essential hypertension SDH (subdural hematoma) S06.5X9A Dehydration E86.0 Severe protein-calorie malnutrition E43 Chronic kidney disease, stage 3a N18.3 Hypokalemia E87.6 DVT prophylaxis Z29.9 (1) DVT (deep venous thrombosis) DVT location: lower extremity Affected thrombotic vein of extremity: femoral Chronicity: acute Laterality: left Qualified Code(s): I82.412 - Acute embolism and thrombosis of left femoral vein (2) Dementia with behavioral disturbance Dementia type: Alzheimer's disease (3) Hyperlipidemia Hyperlipidemia type: unspecified Qualified Code(s): E78.5 - Hyperlipidemia, unspecified (4) Hypertension Hypertension type: essential hypertension Qualified Code(s): I10 - Essential (primary) hypertension
[2019-12-12] MEDS: QUEtiapine FUMARATE 200 MG TAB PO SCH (21:03)
[2019-12-13 06:09] LABS: Hematocrit (blood only) 25.8 % (37-47); Hemoglobin 7.9 g/dL (12.0-16.0); Mean Corpuscular Hemoglobin 26.1 pg (25-34); Mean Corpuscular Hgb Conc 30.6 g/dL (32-36); Mean Corpuscular Volume 85.1 fL (80-100); Mean Platelet Volume 9.4 fL (7.4-10.4); Platelet Count 337 K/uL (130-400); RDW Coefficient of Variation 16.4 % (11.5-14.5); Red Blood Count 3.03 M/uL (4.2-5.4); White Blood Count 5.77 K/uL (4.8-10.8)
[2019-12-13 06:46] LABS: BUN Creatinine Ratio 15.5 (10-20); Calcium 8.7 mg/dl (8.5-10.1); Creatinine Clr Calc Pharmacy 51.4 ml/min; Est GFR (African American) 96.6; Est GFR (Non-African American) 83.4; Potassium 3.5 mmol/L (3.5-5.1)
[2019-12-13] MEDS: CHECK fentaNYL PATCH PLACEMENT SCH ×2 (08:32→17:22)
[2019-12-13] MEDS: QUEtiapine FUMARATE 25 MG TABLET PO SCH (08:34)
[2019-12-13] MEDS: CEROVITE ADV FORMULA TAB PO SCH (08:37)
[2019-12-13] MEDS: FERROUS SULFATE 325 MG TAB PO SCH (08:41)
[2019-12-13] MEDS: LACTOBACILLUS ACIDOPHILUS (FLORANEX) TAB PO SCH ×3 (08:42→21:23)
[2019-12-13] MEDS: SENNA 8.6 MG TAB PO SCH (08:42)
[2019-12-13] MEDS: THIAMINE HCL 100 MG TAB PO SCH ×2 (08:42→21:23)
[2019-12-13] MEDS: POTASSIUM CHLORIDE PWD 20 MEQ PACK PO SCH ×2 (08:42→21:23)
[2019-12-13] MEDS: DAPTOmycin 375 MG in SYRINGE 0 ML IV SCH (13:39)
[2019-12-13] MEDS: ENOXAPARIN 80 MG/0.8 ML SYR SQ SCH (17:22)
--- NOTE | 2019-12-13 18:50 | Hospitalist Progress Note ---
Date of Service December 13, 2019 Assessment & Plan (1) Acute parotitis: LEFT. RESOLVED. Completed 7 days of zosyn then 3 days of augmentin. Also received IV daptomycin for MRSA coverage during that duration. (2) DVT (deep venous thrombosis): LLE she developed the DVT despite appropriate DVT proph with heparin SC while hospitalized. cont lovenox 1.5mg/kg/day (70mg) daily and treat for 6 months poor candidate for coumadin due to inconsistent eating and low body weight poor candidate for novel agent as well (3) Positive blood culture: 1/8 bottles + for MRSA. 4 of the bottles were drawn at [facility] ER and were negative (final). Typically 1 bottle out of 8 would be considered contamination. However, the pathogen was MRSA. Thus, will Rx with a 14-day course of daptomycin to be safe. Today is day #10 of daptomycin. Echo w/o endocarditis. Repeat blood cx's from 12/10/19 remain negative. (4) Exposure to COVID-19 virus: while at [facility] patient shared a room with a patient that ultimately tested + for COVID-19 this was on 12/02/19 patient herself was tested at [facility] but it was several hours after the exposure without question her exposure would not lead to a positive test result that quickly the patient's test at [place] was indeed negative thus, due to high risk of jean pierre the virus given advanced age, etc -- she is a PUI and remains in airborne isolation watch for development of symptoms/signs of COVID - no apparent infection at this time - afebrile, no cough, no desaturations or labored breathing she needs 14 days of quarantine in total today is day #11 of such 2 rapid COVID tests during this hospital stay have been negative, last was 12/09 (5) UTI (urinary tract infection): POA. 2nd to pseudomonas and enterococcus. finished 7-day course of zosyn. removed dawkins. (6) Dementia with behavioral disturbance: dementia advanced Discussion with family today - patient will be transitioned to hospice at discharge cont seroquel (7) Hyperlipidemia: would d/c statin unlikely to provide any benefit to patient in light of advanced dementia (8) Hypertension: controlled without meds (9) SDH (subdural hematoma): noted history of (10) Dehydration: resolved with stable BMP however, nutrition continues to be poor this is chronic issue due to advanced dementia sister and [id number] confirm poor PO intake chronically and ongoing weight loss (11) Severe protein-calorie malnutrition: nearly 20 kg of weight loss in 1 year likely due to advanced dementia (12) Chronic kidney disease, stage 3a: baseline CrCl 30s/40s BMP stable today (13) Hypokalemia: 2nd poor PO intake replaced and resolved (14) DVT prophylaxis: lovenox therapeutic 1.5mg/kg/day d/c to hospice likely tomorrow Admission and Anticipated Discharge Date Admission Date: December 02, 2019 Supervising Physician Co-Signing Physician Notes I did not see patient today as she is still in isolation reviewed chart and notes with Smita NARANJO I called her brother in law Bill who is her POA and discussed her situation he would like to change her to DNR and he agrees with moving towards hospice I spoke with her insurance company over the phone for peer to peer, they would not approve SNF payments discussed with CM, plan to go to [facility] tomorrow, transition to hospice family has been paying out of pocket Subjective Continues to be very confused and with poor appetite. Not able to give a review of systems. Physical Exam Physical Exam: General: no distress Eyes: normal inspection, PERLL Respiratory: chest non tender, clear to auscultation, normal breath sounds, no respiratory distress, no accessory muscle use Cardiac: regular rate and rhythm, no rub or gallop, no murmur, no edema, no jvd GI/: active bowel sounds, no abd pain or tenderness, soft, non distended Extremities: normal range of motion, normal strength, non tender Neuro/Psych: alert and oriented x 3, normal mood and affect Skin: normal color, dry Results & Data Results & Data ([facility]) Vital Signs (Past 12 Hours) Vital Signs Temp Pulse Resp BP Pulse Ox 12/13/19 15:00 37.1 C 102 H 20 131/83 96 12/13/19 07:48 36.7 C 91 H 18 151/80 H 98 PG Care Time/CCT Total # of Minutes Spent Total Time Spent with Patient: Total time spent is greater than 50% in coordination of care (as documented) at patient's floor/unit and/or counseling patient: Coding Level of Care Code 45354 Subseq Hosp Care Lvl 2 Diagnoses Acute parotitis K11.21 DVT (deep venous thrombosis) I82.412 Affected thrombotic vein of extremity: femoral Chronicity: acute DVT location: lower extremity Laterality: left Positive blood culture R78.81 Exposure to COVID-19 virus Z20.828 UTI (urinary tract infection) N39.0 Dementia with behavioral disturbance F03.91 Dementia type: Alzheimer's disease Hyperlipidemia E78.5 Hyperlipidemia type: unspecified Hypertension I10 Hypertension type: essential hypertension SDH (subdural hematoma) S06.5X9A Dehydration E86.0 Severe protein-calorie malnutrition E43 Chronic kidney disease, stage 3a N18.3 Hypokalemia E87.6 DVT prophylaxis Z29.9 (1) Dementia with behavioral disturbance Dementia type: Alzheimer's disease (2) DVT (deep venous thrombosis) Affected thrombotic vein of extremity: femoral Chronicity: acute DVT location: lower extremity Laterality: left Qualified Code(s): I82.412 - Acute embolism and thrombosis of left femoral vein (3) Hyperlipidemia Hyperlipidemia type: unspecified Qualified Code(s): E78.5 - Hyperlipidemia, unspecified (4) Hypertension Hypertension type: essential hypertension Qualified Code(s): I10 - Essential (primary) hypertension
[2019-12-13] MEDS: QUEtiapine FUMARATE 200 MG TAB PO SCH (21:23)
[2019-12-13] MEDS ORDERED: SODIUM CHLORIDE 0.9% 1000ML 250 ML IV ONE (22:23)
[2019-12-14 06:34] LABS: Hematocrit (blood only) 25.2 % (37-47); Hemoglobin 8.2 g/dL (12.0-16.0); Mean Corpuscular Hemoglobin 27.3 pg (25-34); Mean Corpuscular Hgb Conc 32.5 g/dL (32-36); Mean Platelet Volume 9.7 fL (7.4-10.4); Platelet Count 323 K/uL (130-400); RDW Coefficient of Variation 16.7 % (11.5-14.5); RDW Standard Deviation 49.4 fL (36.4-46.3); White Blood Count 6.21 K/uL (4.8-10.8)
[2019-12-14] MEDS: CHECK fentaNYL PATCH PLACEMENT SCH ×2 (07:58)
[2019-12-14] MEDS: LACTOBACILLUS ACIDOPHILUS (FLORANEX) TAB PO SCH (08:00)
[2019-12-14] MEDS: CEROVITE ADV FORMULA TAB PO SCH (08:00)
[2019-12-14] MEDS: FERROUS SULFATE 325 MG TAB PO SCH (08:00)
[2019-12-14] MEDS: POTASSIUM CHLORIDE PWD 20 MEQ PACK PO SCH (08:00)
[2019-12-14] MEDS: THIAMINE HCL 100 MG TAB PO SCH (08:01)
[2019-12-14] MEDS: SENNA 8.6 MG TAB PO SCH (08:01)
[2019-12-14] MEDS: QUEtiapine FUMARATE 25 MG TABLET PO SCH (08:01)
[2019-12-14] MEDS: fentaNYL 12 MCG/HR TDSY TD SCH (08:07)
[2019-12-14] MEDS: DAPTOmycin 375 MG in SYRINGE 0 ML IV SCH (11:20)
--- NOTE | 2019-12-14 12:14 | Discharge Summary ---
Date of Service December 14, 2019 Admission HPI Per Admitting Provider Patient unable to provide details of history or participate with physical exam due to underlying dementia. History obtained through chart review. Left message with patient's sister, uN Welsh [phone]. 79yo C female with history of dementia with behavioral disturbance, HTN, HLP. She presented to [facility] from her senior care today with complaint of left facial swelling. Workup at [facility] included a CT of the face which showede xtensive soft tissue swelling and subcutaneous stranding of left face and neck concerning for cellulitis and possibly inflammation of the left parotid and submandibular glands with no drainable collection or abscess. Also found to have bulky enlarged thyroid gland with heterogenous regions. Recommend followup with US. Additional studies at outside facility significant for Lactate=5.4, +UA, Cr=1.4, WBC=20.1 Patient with reported recent contact with a Covid-19 positive individual. Per report, Covid testing was sent at [facility], awaiting results. Principal Diagnosis Parotitis, DVT Discharge Exam Constitutional well developed, + thin, + frail appearing and + lethargic; no acute distress Eyes PERRL, conjunctivae normal, anicteric sclerae ENMT Nose: + dry nasal mucous membranes Mouth: + dry oral mucous membranes Neck trachea midline, no thyromegaly Respiratory normal respiratory effort, lungs clear to auscultation Cardiovascular RRR, no murmur, no edema Gastrointestinal (Abdomen) normal bowel sounds, soft, nontender, no hepatosplenomegaly Musculoskeletal Head/Neck/Chest: normocephalic, head atraumatic and neck supple Extremities: extremities normal to inspection and + abnormal strength (generalized weakness); no cyanosis and no clubbing Skin no rashes, warm and dry Neurologic CN's II-XI intact bilaterally, deep tendon reflexes 2+ bilaterally, moves all extremities and + confused; no focal motor deficits Motor/Sensory: no tremor Psychiatric Orientation: + not alert, + not oriented to person, + not oriented to place and + not oriented to time Lymphatic no cervical or axillary lymphadenopathy Discharge Data Allergies Allergy/AdvReac Type Severity Reaction Status Date / Time Unable to Assess Allergy Unverified 10/03/18 12:54 Consultations 12/10/19 09:03 Consult Palliative Care Routine Ordered Studies 12/06/19 10:19 US venous doppler LE LT Urgent Hospital Course (1) Acute parotitis: LEFT. RESOLVED. Completed 7 days of zosyn then 3 days of augmentin. Also received IV daptomycin for MRSA coverage during that duration. (2) DVT (deep venous thrombosis): LLE she developed the DVT despite appropriate DVT proph with heparin SC while hospitalized. cont lovenox 1.5mg/kg/day (70mg) daily and treat for 6 months poor candidate for coumadin due to inconsistent eating and low body weight poor candidate for novel agent as well (3) Positive blood culture: / bottles + for MRSA. 4 of the bottles were drawn at [facility] ER and were negative (final). Typically 1 bottle out of 8 would be considered contamination. However, the pathogen was MRSA. Thus, will Rx with a 14-day course of daptomycin to be safe. Today is day #10 of daptomycin. Echo w/o endocarditis. Repeat blood cx's from 12/10/19 remain negative. (4) Exposure to COVID-19 virus: while at [facility] patient shared a room with a patient that ultimately tested + for COVID-19 this was on 12/02/19 patient herself was tested at [facility] but it was several hours after the exposure without question her exposure would not lead to a positive test result that quickly the patient's test at [facility] was indeed negative thus, due to high risk of jean pierre the virus given advanced age, etc -- she is a PUI and remains in airborne isolation watch for development of symptoms/signs of COVID - no apparent infection at this time - afebrile, no cough, no desaturations or labored breathing she needs 14 days of quarantine in total today is day #12 of such 2 rapid COVID tests during this hospital stay have been negative, last was 12/09 (5) UTI (urinary tract infection): POA. 2nd to pseudomonas and enterococcus. finished 7-day course of zosyn. removed dawkins. (6) Dementia with behavioral disturbance: dementia advanced Discussion with family by Dr. Chairez - patient will be transitioned to hospice at discharge cont seroquel (7) Hyperlipidemia: would d/c statin unlikely to provide any benefit to patient in light of advanced dementia (8) Hypertension: controlled without meds (9) SDH (subdural hematoma): noted history of (10) Dehydration: resolved with stable BMP however, nutrition continues to be poor this is chronic issue due to advanced dementia sister and rzwddzi-pe-hie confirm poor PO intake chronically and ongoing weight loss (11) Severe protein-calorie malnutrition: nearly 20 kg of weight loss in 1 year likely due to advanced dementia (12) Chronic kidney disease, stage 3a: baseline CrCl 30s/40s BMP stable today (13) Hypokalemia: 2nd poor PO intake replaced and resolved (14) DVT prophylaxis: lovenox therapeutic 1.5mg/kg/day d/c to hospice Total Time Total Time Spent Total Time Spent (In Minutes): greater than 30 minutes Discharge Plan Discharge Items Patient Disposition: Transfer Senior Living Fac Reason For Visit: left-sided parotid gland infection Discharge Diagnosis: 1. left-sided parotitis (parotid gland infection) - resolved 2. urinary tract infection - resolved 3. bacteremia - 1 out of 8 blood cultures positive for MRSA - significance uncertain but treatment in progress 4. advanced, severe dementia 5. anemia 6. DVT of left leg now on lovenox daily 7. exposure to COVID-19 at [facility] on 12/02/2019 - quarantine needed for 14 days; COVID testing negative x 2 at [facility]; end-date of quarantine December 16, 2019. 8. chronic kidney disease stage 3 9. weight loss, failure to thrive, severe protein calorie malnutrition - 2nd to advanced dementia 10. goals of care discussion with HCPOA needed to address code status, POLST, and end-of-life care Activity: As commented below Activity Comment: bedrest Non-emergency contact: Primary Care Provider Call non-emergency contact if: your pain is not controlled, your pain is worsening and you have a fever Follow-up/Referrals: Austin Hay MD [Primary Care Provider] - Diet: Regular Diet Texture: Pureed (blended smooth) Addtl Attending Provider Instructions: Ms Redding was treated for the problems listed above in "discharge diagnoses." All infectious issues have improved while here. Due to patient's severe, end-stage dementia she has had very poor appetite the entire length of her stay. She has lost considerable weight over the last year - likely due to her dementia. She will transition to hospice Recommendations - 1. complete a 6-day course of IV daptomycin - start date on 12/12/19. Stop date of 12/17/19. She will have 2 doses of IV daptomycin with her from our facility 2. complete 14-day quarantine period due to recent COVID-19 exposure; stop date of quarantine 12/16/19. 3. palliative care consultation & discussions with pt's sister and [id number]. Prognosis is very, very poor with life expectancy of several months at most given her malnutrition and anorexia. 4. lovenox daily for 6 months. Recommend factor 10a level in 3-4 days for stability of lovenox. Hospice may decide to transition off of this for her comfort. 5. ok to discontinue peripheral IV after IV daptomycin course is complete. Pending Studies at Discharge: No Stand-Alone Forms: My [facility] [address] Skilled Items Patient informed of condition?: No DNR: Yes Discharge Level of Care: Skilled Communicable Disease: Yes (two more days of 14 day quararantine for COVID exposure. ) Discharge Prognosis: Deteriorating Lines: US Guided Peripheral IV Urinary Catheter: No Medications and DC Order Prescriptions: New sennosides [Senokot] 8.6 mg Tablet 17.2 mg PO QAM Qty: 60 RF: 2 enoxaparin [Lovenox] 80 mg/0.8 mL Syringe 70 mg subcut DAILY@16 180 Days Qty: 180 RF: 0 Certavite-Antioxidant 18-400 mg-mcg Tablet 1 tab PO QAM Qty: 30 RF: 2 daptomycin 500 mg recon soln 375 mg IV DAILY 6 Days Qty: 6 RF: 0 Continued quetiapine 25 mg tablet 25 mg PO BID Qty: 60 RF: 5 acetaminophen 325 mg tablet 650 mg PO Q4H PRNRF: 0 polyethylene glycol 3350 [Miralax] 17 gram Powder In Packet 17 g PO DAILY PRN (Reason: Constipation) RF: 0 quetiapine [Seroquel] 200 mg Tablet 200 mg PO HS RF: 0 magnesium hydroxide [Milk of Magnesia] 400 mg/5 mL Suspension 400 mg PO DAILY PRN (Reason: Constipation) RF: 0 quetiapine [Seroquel] 50 mg Tablet 50 mg PO DAILY RF: 0 tramadol [Ultram] 50 mg Tablet 50 mg PO Q8H PRN (Reason: Pain) Qty: 30 RF: 0 lorazepam 0.5 mg tablet 0.5 mg PO Q6H PRN (Reason: Agitation) Qty: 30 RF: 0 fentanyl 12 mcg/hr Patch 72 Hour 12 mcg transdermal Q3D Qty: 10 RF: 0 Changed ferrous sulfate 325 mg (65 mg iron) Tablet 325 mg PO DAILY Qty: 30 RF: 2 Discontinued donepezil 10 mg tablet 10 mg PO DAILY Qty: 90 RF: 3 potassium chloride [Klor-Con M20] 20 mEq tablet,ER particles/crystals 20 meq PO DAILY PRN (Reason: edema) Qty: 30 RF: 2 rosuvastatin 5 mg tablet 5 mg PO DAILY RF: 0 Discharge Orders: Discharge Order (Routine); Ordered 12/11/19 Ordered By: Artem Coronel Admission Data Admit Date/Time: 12/02/19 23:06 Attending Provider: Rich Chairez Admit Provider: Contreras Zabala Primary Care Provider: Austin Hay Other Providers: Kim Jones Other Interventions: Discharge Summary Assessment (RN) Last Done: 12/14/19 11:25 Supervising Physician Co-Signing Physician Notes Patient seen and examined on the day of discharge. I agree with the discharge summary by Smita NARANJO. I have reviewed the chart including labs, imaging and plans for discharge. patient resting in bed, limited oral intake I discussed with her POA, her brother in law Bill, and she will be DNR and they would want hospice at [place] spoke with CM, will arrange for transportation - Dementia with poor quality of life, severe dysphagia to the point that she cannot eat or drink enough to sustain her nutrition will discharge to [facility] [place] on hospice care see the d/c summary above for full details of the hospitalization Coding Level of Care Code D/C Day Management >30 mins Diagnoses Acute parotitis K11.21 DVT (deep venous thrombosis) I82.412 Affected thrombotic vein of extremity: femoral Chronicity: acute DVT location: lower extremity Laterality: left Positive blood culture R78.81 Exposure to COVID-19 virus Z20.828 UTI (urinary tract infection) N39.0 Dementia with behavioral disturbance F03.91 Dementia type: Alzheimer's disease Hyperlipidemia E78.5 Hyperlipidemia type: unspecified Hypertension I10 Hypertension type: essential hypertension SDH (subdural hematoma) S06.5X9A Dehydration E86.0 Severe protein-calorie malnutrition E43 Chronic kidney disease, stage 3a N18.3 Hypokalemia E87.6 DVT prophylaxis Z29.9
[2019-12-14] MEDS: LORazepam 0.5 MG TAB PO PRN (13:00)
== END 2019-12-14 14:22 | DRG 154 ==
LOC: 2E 23:06 → SUATTDRO 23:06 → 3W 12-07 15:02